=== PATIENT | male | born 1940 | race Caucasian/White ===

== ENCOUNTER 2017-06-16 09:05 | Day surgery (SDC) | payer MEDICARE, BC ==
[2017-06-16] MEDS ORDERED: diphenhydrAMINE HCl 25 MG CAP PO SCH (09:30)
[2017-06-16] MEDS ORDERED: Acetaminophen 500 MG TAB PO SCH (09:30)
[2017-06-16 14:54] VITALS: TEMP 98
[2017-06-16 16:44] VITALS: BP 108/59
== END 2017-06-16 16:43 | disposition home or self-care (01) ==
LOC: ONC/OP 09:05
PROVIDERS: ATTEND Internal Medicine Medical Oncology
PROC: 302 Administration, Circulatory, Transfusion (ICD-10-PCS; principal; 2017-06-16)
DX: D64.9 Anemia, unspecified (principal); D69.6 Thrombocytopenia, unspecified
CPT/HCPCS: 36430; 86850; 86900; 86901; P9016; P9035

== ENCOUNTER 2017-07-17 10:08 | Day surgery (SDC) | payer MEDICARE, BC ==
[2017-07-17] MEDS ORDERED: diphenhydrAMINE 25 MG CAP PO SCH (10:30)
[2017-07-17] MEDS ORDERED: Acetaminophen 500 MG TAB PO SCH (10:30)
[2017-07-17] MEDS ORDERED: Sodium Chloride 0.9% 30 ML ONE (10:44)
[2017-07-17] MEDS ORDERED: Dexamethasone 10 MG, Admixture Fee 1 EACH in Sodium Chloride 0.9% 50 ML IVPB SCH (11:00)
[2017-07-17] MEDS ORDERED: Diphenoxylate HCl/Atropine Tablet PO SCH (11:15)
[2017-07-17] MEDS ORDERED: Loperamide HCl 2 MG CAP PO SCH (11:15)
[2017-07-17 12:08] LABS: ALT (SGPT) 33 U/L (8-55); AST (SGOT) 30 U/L (5-34); Alkaline Phosphatase 164 U/L (40-150); Anion Gap 9 mmol/L (10-20); BUN (Urea Nitrogen) 23 mg/dL (8.4-25.7); Bilirubin, Total 0.7 mg/dL (0.2-1.2); Calc. Creatinine Clearance 0 mL/min (70-130); Calcium 8.9 mg/dL (7.8-10.44); Carbon Dioxide 28 mmol/L (23-31); Chloride 104 mmol/L (98-107); Estimated GFR-MDRD 54; Magnesium 1.8 mg/dL (1.6-2.6); Protein, Total 5.3 g/dL (5.8-8.1)
[2017-07-17 13:42] VITALS: BP 120/60; TEMP 98.2
== END 2017-07-17 14:30 | disposition home or self-care (01) ==
LOC: ONC/OP 10:08
PROVIDERS: ATTEND Internal Medicine Hematology & Oncology
PROC: 30233R1 Transfusion of Nonautologous Platelets into Peripheral Vein, Percutaneous Approach (ICD-10-PCS; principal; 2017-07-17)
DX: D64.9 Anemia, unspecified (principal); D69.6 Thrombocytopenia, unspecified
CPT/HCPCS: 36430; 80053; 83735; 86900; 86901; 96365; 99212; A4216; G0463; J1100; J1642; J7050; P9035

== ENCOUNTER 2017-07-24 09:56 | Day surgery (SDC) | payer MEDICARE, BC ==
[2017-07-24] MEDS ORDERED: Acetaminophen 500 MG TAB PO SCH (10:15)
[2017-07-24] MEDS ORDERED: diphenhydrAMINE 25 MG CAP PO SCH (10:15)
[2017-07-24] MEDS ORDERED: Dexamethasone 10 MG, Admixture Fee 1 EACH in Sodium Chloride 0.9% 50 ML IVPB SCH (10:15)
[2017-07-24] MEDS ORDERED: Sodium Chloride 0.9% 20 ML ONE (10:40)
[2017-07-24 13:11] VITALS: BP 129/62; TEMP 97.8
== END 2017-07-24 13:05 | disposition home or self-care (01) ==
LOC: ONC/OP 09:56
PROVIDERS: ATTEND Internal Medicine
PROC: 30233R1 Transfusion of Nonautologous Platelets into Peripheral Vein, Percutaneous Approach (ICD-10-PCS; principal; 2017-07-24)
DX: D64.9 Anemia, unspecified (principal); D69.6 Thrombocytopenia, unspecified
CPT/HCPCS: 36430; 86900; 86901; 96365; A4216; J1100; J1642; J7050; P9035

== ENCOUNTER 2017-08-05 09:19 | Day surgery (SDC) | payer MEDICARE, BC ==
[2017-08-05] MEDS ORDERED: Acetaminophen 500 MG TAB PO SCH (10:00)
[2017-08-05] MEDS ORDERED: Sodium Chloride 0.9% 20 ML ONE (10:10)
[2017-08-05] MEDS ORDERED: diphenhydrAMINE 25 MG CAP PO SCH (10:15)
[2017-08-05] MEDS ORDERED: Dexamethasone 10 MG/ML VIAL SLOW IVP SCH (10:15)
[2017-08-05 17:40] VITALS: BP 153/71; TEMP 97.4
== END 2017-08-05 17:40 | disposition home or self-care (01) ==
LOC: ONC/OP 09:19
PROVIDERS: ATTEND Nurse Practitioner Acute Care
PROC: 30233N1 Transfusion of Nonautologous Red Blood Cells into Peripheral Vein, Percutaneous Approach (ICD-10-PCS; principal; 2017-08-05)
DX: D64.9 Anemia, unspecified (principal); D69.59 Other secondary thrombocytopenia
CPT/HCPCS: 36430; 86850; 86900; 86901; 90384; 96372; 96374; A4216; J1100; P9016; P9035

== ENCOUNTER 2017-08-13 09:15 | Day surgery (SDC) | payer MEDICARE, BC ==
[2017-08-13] MEDS ORDERED: diphenhydrAMINE 25 MG CAP PO SCH (09:30)
[2017-08-13] MEDS ORDERED: Dexamethasone 4 mg/ml Vial SLOW IVP SCH (09:30)
[2017-08-13] MEDS ORDERED: Acetaminophen 500 MG TAB PO SCH (09:30)
[2017-08-13] MEDS ORDERED: Sodium Chloride 0.9% 30 ML ONE (10:07)
[2017-08-13 19:01] VITALS: BP 160/72; TEMP 97.9
== END 2017-08-13 11:15 | disposition home or self-care (01) ==
LOC: ONC/OP 09:15
PROVIDERS: ATTEND Internal Medicine Hematology & Oncology
PROC: 30233R1 Transfusion of Nonautologous Platelets into Peripheral Vein, Percutaneous Approach (ICD-10-PCS; principal; 2017-08-13)
DX: D64.9 Anemia, unspecified (principal); D69.59 Other secondary thrombocytopenia
CPT/HCPCS: 36430; 86900; 86901; 96374; A4216; J1100; P9035

== ENCOUNTER 2017-08-18 09:27 | Day surgery (SDC) | payer MEDICARE, BC ==
[2017-08-18] MEDS ORDERED: Acetaminophen 500 MG TAB PO SCH (09:45)
[2017-08-18] MEDS ORDERED: Dexamethasone 10 MG/ML VIAL SLOW IVP SCH (09:45)
[2017-08-18] MEDS ORDERED: diphenhydrAMINE 25 MG CAP PO SCH (09:45)
[2017-08-18] MEDS ORDERED: Sterile Water 10 ML VIAL IVP SCH (09:45)
[2017-08-18] MEDS ORDERED: Activase 2 MG VIAL CATH SCH (09:45)
[2017-08-18] MEDS ORDERED: Sodium Chloride 0.9% 20 ML ONE (09:50)
[2017-08-18] MEDS ORDERED: Dexamethasone 4 mg/ml Vial SLOW IVP SCH (11:00)
[2017-08-18 12:09] VITALS: BP 130/63; TEMP 98.1
== END 2017-08-18 12:49 | disposition home or self-care (01) ==
LOC: ONC/OP 09:27
PROVIDERS: ATTEND Internal Medicine Hematology & Oncology
PROC: 30233R1 Transfusion of Nonautologous Platelets into Peripheral Vein, Percutaneous Approach (ICD-10-PCS; principal; 2017-08-18)
DX: D64.9 Anemia, unspecified (principal); D69.6 Thrombocytopenia, unspecified
CPT/HCPCS: 36430; 86900; 86901; 96374; 96375; A4216; J1100; J1642; J2997; P9035

== ENCOUNTER 2017-08-21 09:33 | Day surgery (SDC) | payer MEDICARE, BC ==
[2017-08-21] MEDS ORDERED: Acetaminophen 500 MG TAB PO SCH (10:00)
[2017-08-21] MEDS ORDERED: diphenhydrAMINE 25 MG CAP PO SCH (10:00)
[2017-08-21] MEDS ORDERED: Dexamethasone 4 mg/ml Vial SLOW IVP SCH (10:00)
[2017-08-21] MEDS ORDERED: Sodium Chloride 0.9% 20 ML ONE (13:19)
[2017-08-21 13:30] VITALS: BP 130/66; TEMP 98.2
== END 2017-08-21 16:29 | disposition home or self-care (01) ==
LOC: ONC/OP 09:33
PROVIDERS: ATTEND Internal Medicine Hematology & Oncology
PROC: 30233N1 Transfusion of Nonautologous Red Blood Cells into Peripheral Vein, Percutaneous Approach (ICD-10-PCS; principal; 2017-08-21)
DX: D64.9 Anemia, unspecified (principal); D69.59 Other secondary thrombocytopenia; C92.00 Acute myeloblastic leukemia, not having achieved remission; I10 Essential (primary) hypertension; E78.5 Hyperlipidemia, unspecified; E03.9 Hypothyroidism, unspecified; M19.90 Unspecified osteoarthritis, unspecified site; H40.9 Unspecified glaucoma; K21.9 Gastro-esophageal reflux disease without esophagitis; F41.9 Anxiety disorder, unspecified; F32.9 Major depressive disorder, single episode, unspecified; F42.9 Obsessive-compulsive disorder, unspecified; Z79.2 Long term (current) use of antibiotics; Z79.52 Long term (current) use of systemic steroids; Z79.899 Other long term (current) drug therapy; Z96.651 Presence of right artificial knee joint; Z90.79 Acquired absence of other genital organ(s); Z87.891 Personal history of nicotine dependence; Z85.46 Personal history of malignant neoplasm of prostate
CPT/HCPCS: 36430; 86850; 86900; 86901; 96374; A4216; J1100; P9016

== ENCOUNTER 2017-08-23 11:27 | Inpatient (IN) | payer MEDICARE, BC ==
--- NOTE | 2017-08-23 11:56 | RAD ---
CHEST 1 VIEW PORTABLE: HISTORY: Dyspnea. FINDINGS: Heart size is within normal limits. The lungs show some linear interstitial changes of the nichols sugg esting some subsegmental atelectatic change. No focal infiltrates. IMPRESSION: Linear and interstitial change in the bases suggesting some subsegmental atelectasis. POS: H
[2017-08-23 12:09] LABS: Lactic Acid - Sepsis 1.9 mmol/L (0.5-2.2)
[2017-08-23 12:12] LABS: Hematocrit 29.2 % (42.0-52.0); Red Blood Cell (RBC) Count 3.34 mill/uL (4.70-6.10); White Blood Cell (WBC) Count 0.3 thou/uL (4.8-10.8)
[2017-08-23 12:13] LABS: ALT (SGPT) 15 U/L (8-55); AST (SGOT) 12 U/L (5-34); Alkaline Phosphatase 142 U/L (40-150); Anion Gap 14 mmol/L (10-20); BUN (Urea Nitrogen) 28 mg/dL (8.4-25.7); Bilirubin, Total 1.2 mg/dL (0.2-1.2); Calc. Creatinine Clearance 0 mL/min (70-130); Calcium 9.6 mg/dL (7.8-10.44); Carbon Dioxide 26 mmol/L (23-31); Chloride 96 mmol/L (98-107); Estimated GFR-MDRD 64; Globulin 2.8 g/dL (2.4-3.5); Protein, Total 6.6 g/dL (5.8-8.1)
[2017-08-23] MEDS ORDERED: Ondansetron HCl/PF 4 MG/2 ML Vial ONE (12:28)
[2017-08-23] MEDS ORDERED: Acetaminophen 500 MG TAB ONE (13:27)
[2017-08-23] MEDS ORDERED: Iopamidol 370 76% 100 ML VIAL ONE (13:38)
[2017-08-23 14:21] LABS: Bilirubin Negative (Negative); Blood, Urine Moderate (Negative); Glucose, Urine (Dipstick) Negative (Negative); Ketone, Urine Negative (Negative); Nitrite Negative (Negative); Protein, Urine (Dipstick) Trace mg/dL (Neg-Trace); Urobilinogen 0.2 mg/dL (0.2-1.0)
[2017-08-23 14:25] LABS: Bacteria/HPF None Seen HPF (None Seen); Hyaline Casts/LPF 0-3 HYALINE CAST LPF (0-3 Hyaline); Squamous Epithelial None Seen HPF (0-3); WBC/HPF 0-3 HPF (0-3)
[2017-08-23] MEDS ORDERED: Cefepime 2 GM/10 ML SYR ONE (15:12)
[2017-08-23] MEDS ORDERED: Vancomycin HCl 1.25 GM in Sodium Chloride 0.9% 250 ML 250 ML IVPB SCH (15:30)
--- NOTE | 2017-08-23 15:36 | CT ---
CTA THORAX WITH CONTRAST: 08/23/17 (Computed Tomographic Angiography, chest(noncoronary) with contrast material, and image postprocessin g) (PE protocol) HISTORY: 76-year-old male with cough for two weeks, generalized weakness, nausea, and dyspnea. TECHNIQUE: IV injection of iodinated contrast: 100 mL Isovue 370 Scan acquisition timing attempted to coincide with iodinated contrast bolus reaching maximal density in pulmonary arteries. 3D MIP reconstructions. FINDINGS: There is an aberrant right subclavian artery passing between the esophagus and the upper thoracic spi ne. No thoracic aortic aneurysm or dissection. A layer of numerous tiny calcified gallstones within t he dependent portion of the gallbladder lumen. No signs of acute cholecystitis. Bilateral breast tiss ue. No evidence of pulmonary thromboembolism. Moderate sized air space densities in the left lower lo be, and to a lesser degree in the right lower lobe. Small patchy air space densities at the posterior anterolateral aspect of right middle lobe and posterior segment of right upper lobe. No cardiomegaly , pleural effusion, or pneumothorax. Left sided PICC traversing the left subclavian vein with distal tip at superior vena cava. Several mildly enlarged mediastinal lymph nodes, slightly larger than on p revious CT of 03/02/10. The previously demonstrated bilateral axillary lymphadenopathy has either reso lved or significantly improved since then. IMPRESSION: 1. Evidence for multifocal bilateral pneumonia, worst in the left lower lobe. 2. No evidence of pulmonary thromboembolism. 3. Aberrant right subclavian artery. 4. Cholelithiasis. 5. Gynecomastia. kate[] POS: DARWIN
[2017-08-23] MEDS ORDERED: hydrALAZINE 20 MG/ML VIAL SLOW IVP PRN (15:44)
[2017-08-23] MEDS ORDERED: Artificial Tears 18 DROP/0.9 ML EA EYE PRN (15:44)
[2017-08-23] MEDS ORDERED: Loratadine 10 MG TAB PO PRN (15:44)
[2017-08-23] MEDS ORDERED: Eucerin (Mineral Oil/Petrolatum,White) 30 gm Jar TOP PRN (15:44)
[2017-08-23] MEDS ORDERED: Chloraseptic Spray 180 ml Bottle PO PRN (15:44)
[2017-08-23] MEDS ORDERED: HYDROcodone/Acetaminophen 5/325 mg Tablet PO PRN (15:44)
[2017-08-23] MEDS ORDERED: Diabetic Tussin 200 MG/10 ML UDCUP PO PRN (15:44)
[2017-08-23] MEDS ORDERED: Senokot 8.6 MG TAB PO PRN (15:44)
[2017-08-23] MEDS ORDERED: Ondansetron HCl/PF 4 MG/2 ML Vial IVP PRN (15:44)
[2017-08-23] MEDS ORDERED: Loperamide HCl 2 MG CAP PO PRN (15:44)
[2017-08-23] MEDS ORDERED: Sodium Chloride 0.65% Nasal 44 ML BOT EA NARE PRN (15:44)
[2017-08-23] MEDS ORDERED: Ondansetron ODT 4 MG TAB PO PRN (15:44)
[2017-08-23] MEDS ORDERED: Milk Of Magnesia 30 ML UDCUP PO PRN (15:44)
[2017-08-23] MEDS ORDERED: Multivit, Adult Inj 10 ML VIAL IV SCH (15:45)
[2017-08-23] MEDS ORDERED: ALPRAZolam 0.5 MG TAB PO PRN (15:46)
[2017-08-23] MEDS ORDERED: Multivitamins, Adult 10 ML in Sodium Chloride 0.9% 500 ML IV SCH ×2 (16:15)
--- NOTE | 2017-08-23 16:17 | HP ---
PRIMARY CARE PHYSICIAN: Dat Naqvi M.D. PRIMARY SEMICONDUCTOR PACKAGES SEALER: Farhad Castillo M.D. REASON FOR ADMISSION: Neutropenic fever, sepsis, and severe thrombocytopenia. HISTORY OF PRESENT ILLNESS: A 76-year-old male who has long history of CLL. 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 Patient is following Dr. Castillo as well as MD Anton. Patient is on cytarabine subcu f or 10 days and oral chemotherapy for 28 days. Patient is not able to tell me exact name of oral chem otherapy medication. For last couple of weeks, he was on chemotherapy and patient was also having dr briceno cough, postnasal drip and generalized weakness. Patient saw Dr. Castillo on and patient wa s given prescription for steroid pack. Patient started taking steroid pack yesterday and after that he was not feeling good. He was feeling generalized weakness, nausea, poor appetite, and he was feel ing shortness of breath. He denies any nausea, vomiting, diarrhea, chest pain, hemoptysis or any spu porsha. He denies any abdominal pain. He denies any UTI symptoms. He denies any kind of bleeding from any site. He denies any headache. Patient's family member reports that when they saw Dr. Castillo, at that time, his platelet count was 25,000 and today in the emergency room his platelet count is 8,000. Initially, chest x-ray was negat rocael for any acute process, but when they did CT angiography, patient was found with multifocal pneumo vernon. The patient has received enough IV fluid and his blood pressure is stabilized. He is tachycard ic. He is well mentating in the emergency room. When I saw, at that time, his blood pressure improv ed to 114/70 and his pulse is 110. He is able to provide history and his is present at bedside. REVIEW OF SYSTEMS: The following complete review of systems was negative, unless otherwise mentioned in the HPI or below: Constitutional: Weight loss or gain, ability to conduct usual activities. Skin: Rash, itching. Eyes: Double vision, pain. ENT/Mouth: Nose bleeding, neck stiffness, pain, tenderness. Cardiovascular: Palpitations, dyspnea on exertion, orthopnea. Respiratory: Shortness of breath, wheezing, cough, hemoptysis, fever or night sweats. Gastrointestinal: Poor appetite, abdominal pain, heartburn, nausea, vomiting, constipation, or diarr hea. Genitourinary: Urgency, frequency, dysuria, nocturia. Musculoskeletal: Pain, swelling. Neurologic/Psychiatric: Anxiety, depression. Allergy/Immunologic: Skin rash, bleeding tendency. Please see my HPI for pertinent positive and negative. All other review of systems reviewed and nega tive except as mentioned in the HPI. ALLERGIES: No known drug allergies. CURRENT HOME MEDICATIONS: Abilify 1 mg p.o. daily, Tylenol #3 one tablet q.6 hourly p.r.n., Lipitor 20 mg p.o. at bedtime, ciclopirox topical application twice daily, Deplin 15 mg daily, fluvoxamine 10 0 mg p.o. daily, hydrochlorothiazide 12.5 mg p.o. daily, hyoscyamine 0.125 mg as needed, Synthroid 88 mcg p.o. daily, loperamide as needed, Lumigan ophthalmic drop at bedtime, pilocarpine 1% ophthalmic drop twice daily, potassium chloride 20 mEq p.o. daily, Prilosec 20 mg p.o. daily, promethazine 12.5 mg q.8 hourly p.r.n., valacyclovir 500 mg p.o. daily, and Xanax as needed basis. PAST MEDICAL HISTORY: History of CLL then converted to myelodysplastic syndrome and then converted i nto acute myeloid leukemia on chemotherapy, history of prostate cancer, hypertension, dyslipidemia, h ypothyroidism, osteoarthritis, glaucoma, and gastroesophageal reflux disease. PAST PSYCHIATRIC HISTORY: Anxiety, depression, and obsessive compulsive disorder. PAST SURGICAL HISTORY: Right total knee replacement and prostatectomy. SOCIAL HISTORY: Patient lives at home with the family. No history of smoking, alcohol or other illi cit drug abuse at this point, but he smoked in his life and he quit smoking more than 10 years ago. FAMILY HISTORY: No strong family history of premature coronary artery disease, stroke or cancer. EMERGENCY ROOM COURSE: The patient has received 3 liters of IV fluid, vancomycin, cefepime, Tylenol 1 g, Zofran 8 mg. PHYSICAL EXAMINATION: VITAL SIGNS: On arrival, blood pressure 132/73, lowest blood pressure is 105/43, pulse 128, respirat ory rate 23, temperature 99.8, T-maximum 102.1, saturation 91% on room air, weight 74.8 kilograms. GENERAL: Patient is currently alert, awake, no obvious acute distress. HEAD: Normocephalic, atraumatic. EYES: Pupils round, reactive to light. Extraocular muscles intact. ENT: Oropharynx within normal limits. Moist mucous membranes. No oral lesions. No pharyngeal eryt eleuterio. No petechiae. NECK: Supple. No meningeal signs of irritation, no JVD, no thyromegaly, no carotid bruits. LUNGS: Unable to elicit any rhonchi or wheeze. No rales. Air entry normal. CARDIAC: S1 and S2 regular, tachycardia, no murmur, no gallop, no rub. ABDOMEN: Soft, bowel sounds present. No peritoneal signs, no guarding, no rigidity, no rebound, no suprapubic tenderness. BACK: Examination unremarkable. No CVA tenderness. EXTREMITIES: Upper extremity passive movements of all joints are normal. The patient has PICC line in place in the left upper extremity. Lower extremity trace edema noted. Good peripheral pulsation. SKIN: The patient does have some petechiae noted on the chest wall. Otherwise, no rash, no bruits, no purpura. HEMATOLOGICAL SYSTEM: No lymphadenopathy. PSYCHIATRIC: Normal affect. NEUROLOGIC: The patient is alert and oriented x3. Cranial nerves II-XII intact. Motor 5/5 in all f our limbs. Sensation bilaterally symmetrical. Plantar bilateral flexor. PSYCHIATRIC: Normal affect. IMAGING AND LABORATORY DATA: 1. EKG based on my review, sinus tachycardia, incomplete right bundle branch block pattern, nonspeci fic ST-T changes. 2. Chest x-ray based on my review, no acute cardiopulmonary process, subsegmental atelectasis noted. 3. CT angio negative for pulmonary embolism, but it is showing multifocal infiltration. 4. CBC: WBC 0.3, hemoglobin 10.2, and platelets 8. 5. BMP: Sodium 132, potassium 3.7, chloride 96, carbon dioxide 26, anion gap 14, BUN 28, creatinine 1.11, glucose 126, calcium 9.6. Lactic acid 1.9. 6. LFT: AST 12, ALT 15, alkaline phosphatase 142, albumin 3.8. 7. Urinalysis microscopic hematuria. ASSESSMENT AND PLAN/IMPRESSION: 1. Neutropenic fever. Patient has neutropenia with WBC 0.3. He has underlying hematological malign hailey on chemotherapy. Patient also has T-maximum 102, fever with tachycardia. He is meeting sepsis criteria as well. At this point, patient will be admitted on telemetry floor for close monitoring. Patient will be given neutropenic precautions. Patient will be given IV fluid as well as broad spect rum antibiotic therapy. We will closely monitor for any hemodynamic compromise. At this point, florentin ent is stable to go to the telemetry floor. He does not need at this point any IMCU, but we will dec walter as clinical course progress. 2. Sepsis. Patient has sepsis criteria. At this point, source of infection is pneumonia. Patient will be given broad spectrum antibiotic therapy with cefepime, Levaquin, and vancomycin. We will fol low up on culture result. We will also send urine culture. We will check influenza screen. Based o n culture result, we will change antibiotic therapy accordingly. 3. Neutropenia. Patient has AML and he is on chemotherapy. This leukopenia may be combined from se psis as well as chemotherapy. We will monitor CBC daily and we will provide neutropenic precaution. We will consult Hematology as well. In case if further decision, we will defer to Hematology. 4. Severe thrombocytopenia. We will transfuse him one unit of platelets and we will monitor platele t count. At this point, the patient does not have any bleeding from any site and he has no neurologi dominguez problem or any abdominal problems. We will closely monitor. We will provide fall precaution. 5. Multifocal pneumonia. Patient does not have any x-ray findings, but CT finding is consistent wit h multiple infiltrations. The patient is on broad spectrum antibiotic therapy. We will provide oxyg en to keep saturation above 92%. We will provide DuoNeb therapy as needed basis. We will consider M ucinex 600 mg twice daily. We will also check influenza screen and a Streptococcal pneumonia antigen test in urine. We will follow up on culture result. 6. Hypothyroidism. We will continue Synthroid 88 mcg p.o. daily. 7. Dyslipidemia. We will continue Lipitor 20 mg p.o. at bedtime. 8. Anxiety and depression. Once we verify his home medication of Abilify, fluvoxamine, which we samara l continue during this admission. 9. Glaucoma. We will continue Lumigan and pilocarpine ophthalmic drops as per home dosage. 10. Gastroesophageal reflux disease. We will continue Protonix 40 mg p.o. daily. 11. Acute myeloid leukemia, on chemotherapy. We will consult Hematology and will defer treatment pl an to them. 12. Deep venous thrombosis prophylaxis, only sequential compression device boots. No Lovenox becaus e of severe thrombocytopenia. 13. Gastrointestinal prophylaxis, Protonix 40 mg p.o. daily. CODE STATUS: The patient is FULL CODE. Discussed with the patient's and she is surrogate decis ion maker. Disposition and plan based on clinical course. We are expecting patient's stay in the spital more than 2 midnights. Upon stabilization, we will consider transferring to Oncology. Plan o f care extensively discussed with the patient and family member at bedside in the emergency room.
[2017-08-23 19:47] LABS: LegU Control Bar Appear? YES (CONTROL BAR); LegionellaU Control Bkground? CLEAR/WHITE (CLR/WHITE)
[2017-08-23 19:48] LABS: Strp pneuU Control Background? CLEAR/WHITE (CLR/WHITE); Strp pneumo Control Bar Appear YES (CONTROL BAR)
[2017-08-23] MEDS: NS 0.9% w/ 20 MEQ KCL 1,000 ML/1,000 ML BAG IV SCH (20:25)
[2017-08-23] MEDS ORDERED: Atorvastatin Calcium 20 MG TAB PO SCH (21:00)
[2017-08-23] MEDS ORDERED: Cefepime 2 GM in Sodium Chloride 0.9% 100 ML IVPB SCH (21:00)
[2017-08-23] MEDS: Pilocarpine 1% Ophth Drops 15 ML BOT EA EYE SCH (21:23)
[2017-08-23] MEDS: guaiFENesin ER 600 MG TAB PO SCH (21:24)
[2017-08-24] MEDS: NS 0.9% w/ 20 MEQ KCL 1,000 ML/1,000 ML BAG IV SCH ×4 (00:18→19:01)
[2017-08-24] MEDS: Cefepime 2 GM, Syringe 2.5 ML in Sterile Water 10 ML SLOW IVP SCH ×2 (03:05→16:36)
[2017-08-24] MEDS: Vancomycin HCl 750 MG in Sodium Chloride 0.9% 250 ML 250 ML IVPB SCH ×2 (03:07→16:36)
[2017-08-24 05:28] LABS: Hematocrit 20.6 % (42.0-52.0); Mean Platelet Volume 7.8 fL (7.4-10.4); Red Blood Cell (RBC) Count 2.32 mill/uL (4.70-6.10); White Blood Cell (WBC) Count 0.1 thou/uL (4.8-10.8)
[2017-08-24 05:29] LABS: ALT (SGPT) 11 U/L (8-55); AST (SGOT) 10 U/L (5-34); Alkaline Phosphatase 94 U/L (40-150); Anion Gap 9 mmol/L (10-20); BUN (Urea Nitrogen) 23 mg/dL (8.4-25.7); Calc. Creatinine Clearance 86 mL/min (70-130); Calcium 8.4 mg/dL (7.8-10.44); Carbon Dioxide 26 mmol/L (23-31); Chloride 104 mmol/L (98-107); Estimated GFR-MDRD 89; Globulin 2.3 g/dL (2.4-3.5); Protein, Total 5.2 g/dL (5.8-8.1)
[2017-08-24] MEDS ORDERED: Levothyroxine Sodium 88 MCG TAB PO SCH (06:00)
[2017-08-24] MEDS: Pilocarpine 1% Ophth Drops 15 ML BOT EA EYE SCH ×2 (10:30→21:12)
[2017-08-24] MEDS: guaiFENesin ER 600 MG TAB PO SCH ×2 (10:30→21:15)
[2017-08-24] MEDS: Saccharomyces boulardii 250 MG CAP PO SCH (10:31)
--- NOTE | 2017-08-24 10:45 | PDOC.PN ---
- Subjective Encounter Start Date: 08/24/17 Encounter Start Time: 10:44 Subjective: no new complaints - Objective Resuscitation Status: Resuscitation Status FULL:Full Resuscitation MAR Reviewed: Yes Vital Signs & Weight: Vital Signs (12 hours) Temp Pulse Resp BP BP Pulse Ox 08/24/17 08:20 97.9 F 86 18 100/54 L 100 08/24/17 04:00 98.2 F 108 H 18 105/55 L 100 08/24/17 00:00 99.2 F 108 H 20 131/60 100 Weight Weight 182 lb 4.8 oz I&O: 08/23/17 08/24/17 08/25/17 06:59 06:59 06:59 Intake Total 5540 360 Output Total 1145 Balance 4395 360 Result Diagrams: 08/24/17 04:17 08/24/17 04:17 Radiology Reviewed by me: Yes Phys Exam - Physical Examination Constitutional: NAD HEENT: PERRLA, moist MMs temporal wasting Neck: supple Respiratory: clear to auscultation bilateral Cardiovascular: RRR, no significant murmur Gastrointestinal: soft, non-tender Musculoskeletal: no edema Neurological: non-focal, moves all 4 limbs Deviation from normal: pale with bruising Dx/Plan (1) AML (acute myeloblastic leukemia) Code(s): C92.00 - ACUTE MYELOBLASTIC LEUKEMIA, NOT HAVING ACHIEVED REMISSION Status: Acute (2) PNA (pneumonia) Code(s): J18.9 - PNEUMONIA, UNSPECIFIED ORGANISM Status: Acute (3) Anemia Code(s): D64.9 - ANEMIA, UNSPECIFIED Status: Acute (4) Thrombocytopenia Code(s): D69.6 - THROMBOCYTOPENIA, UNSPECIFIED Status: Acute (5) Sepsis Code(s): A41.9 - SEPSIS, UNSPECIFIED ORGANISM Status: Acute - Plan cont current plan of care, continue antibiotics, PT/OT * .
[2017-08-24] MEDS ORDERED: ALPRAZolam 0.5 MG TAB PO PRN (11:06)
[2017-08-24] MEDS ORDERED: Hyoscyamine Sulfate SL 0.125 mg Tablet SL PRN (11:06)
[2017-08-24] MEDS ORDERED: Acetaminophen/Codeine 30-300mg Tablet PO PRN (11:06)
[2017-08-24] MEDS ORDERED: methylPREDNISolone 4 mg Tablet PO SCH (11:15)
--- NOTE | 2017-08-24 12:52 | CON ---
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 He has been started on chemotherapy recently at [facility] with venetoclax and cytosine segun binoside. He has completed cytosine arabinoside and is continuing venetoclax. The patient was admit livier yesterday with extreme weakness and fever. A chest x-ray in the emergency room was essentially n egative. However, CT scan showed multifocal pneumonia. He has been cultured and is currently on van comycin, cefepime, and Levaquin. The patient is feeling better this morning. PHYSICAL EXAMINATION: VITAL SIGNS: Temperature 97.9, pulse 96, respirations 18, blood pressure 100/54. HEENT: Unremarkable. LYMPHATICS: There is no peripheral lymphadenopathy. CHEST: Unremarkable. HEART: Unremarkable. ABDOMEN: Unremarkable. LABORATORY DATA: CBC shows WBC of 100 with hemoglobin of 7 and platelet count of 21,000. He was giv en platelet transfusion yesterday. Chemistry profile shows serum creatinine of 0.84, potassium 3.9, calcium 8.4, and albumin of 2.3. ASSESSMENT AND RECOMMENDATION: The patient will be continued on antibiotics and will receive blood c omponent support with platelets and RBC transfusion.
[2017-08-24 13:12] LABS: IRF 0.067 Ratio (0.163-0.362); Reticulocyte Count 0.1 % (0.5-1.5)
[2017-08-24 13:18] LABS: Hematocrit 20.2 % (42.0-52.0); Mean Platelet Volume 7.4 fL (7.4-10.4); Red Blood Cell (RBC) Count 2.27 mill/uL (4.70-6.10); White Blood Cell (WBC) Count 0.1 thou/uL (4.8-10.8)
[2017-08-24] MEDS ORDERED: LEVOMEFOLATE PO SCH (21:00)
[2017-08-24] MEDS ORDERED: ALGAL OIL PO SCH (21:00)
[2017-08-24] MEDS ORDERED: Pilocarpine 1% Ophth Drops 15 ML BOT EA EYE SCH (21:00)
[2017-08-24] MEDS ORDERED: FLUVOXAMINE MALEATE 100 MG PO SCH (21:00)
[2017-08-24] MEDS ORDERED: Atorvastatin Calcium 20 MG TAB PO SCH (21:00)
[2017-08-24] MEDS: Latanoprost 0.005% Ophth Soln 2.5 ml Bottle EA EYE SCH (21:08)
[2017-08-24] MEDS: Aripiprazole 2 MG TAB PO SCH (21:09)
[2017-08-25 03:31] LABS: Hematocrit 25.9 % (42.0-52.0); Red Blood Cell (RBC) Count 2.89 mill/uL (4.70-6.10); White Blood Cell (WBC) Count 0.1 thou/uL (4.8-10.8)
[2017-08-25 03:41] LABS: Vancomycin, Trough 11.6 ug/mL
[2017-08-25 03:43] LABS: Anion Gap 9 mmol/L (10-20); BUN (Urea Nitrogen) 29 mg/dL (8.4-25.7); Calc. Creatinine Clearance 100 mL/min (70-130); Calcium 7.8 mg/dL (7.8-10.44); Carbon Dioxide 22 mmol/L (23-31); Chloride 110 mmol/L (98-107); Estimated GFR-MDRD Greater than 90
[2017-08-25] MEDS ORDERED: Vancomycin HCl 1 GM in Premix Bag 1 BAG IVPB SCH ×2 (04:15→16:00)
[2017-08-25] MEDS: Cefepime 2 GM, Syringe 2.5 ML in Sterile Water 10 ML SLOW IVP SCH ×2 (04:24→21:29)
[2017-08-25] MEDS: Hydrochlorothiazide 25 MG TAB PO SCH (08:47)
[2017-08-25] MEDS: Pilocarpine 1% Ophth Drops 15 ML BOT EA EYE SCH ×2 (08:47→21:24)
[2017-08-25] MEDS: guaiFENesin ER 600 MG TAB PO SCH ×2 (08:48→21:17)
[2017-08-25] MEDS: Saccharomyces boulardii 250 MG CAP PO SCH (08:48)
[2017-08-25] MEDS: NS 0.9% w/ 20 MEQ KCL 1,000 ML/1,000 ML BAG IV SCH (08:49)
[2017-08-25] MEDS ORDERED: Levothyroxine Sodium 88 MCG TAB PO SCH (09:00)
[2017-08-25] MEDS ORDERED: Potassium Chloride 10 MEQ TAB PO SCH (09:00)
--- NOTE | 2017-08-25 10:05 | PDOC.PN ---
- Subjective Encounter Start Date: 08/25/17 Encounter Start Time: 08:10 -: old records requested/rev pt has cough, Patient seen and examined. No new complaints. No overnight events no chills, no fever - Objective Resuscitation Status: Resuscitation Status FULL:Full Resuscitation MAR Reviewed: Yes Vital Signs & Weight: Vital Signs (12 hours) Temp Pulse Resp BP BP Pulse Ox 08/25/17 07:58 96.3 F L 70 18 110/57 L 97 08/25/17 04:00 98.7 F 69 20 109/59 L 100 08/25/17 01:10 100 08/25/17 00:00 98.0 F 74 18 108/54 L 98 Weight Weight 184 lb 4.8 oz I&O: 08/24/17 08/25/17 08/26/17 06:59 06:59 06:59 Intake Total 5540 3060 Output Total 1145 1170 Balance 4395 1890 Result Diagrams: 08/25/17 03:05 08/25/17 03:05 EKG Reviewed by me: Yes (NSR) Phys Exam - Physical Examination Constitutional: NAD HEENT: PERRLA, moist MMs, sclera anicteric Neck: no JVD, supple Respiratory: no wheezing, no rales, no rhonchi Cardiovascular: RRR, no significant murmur, no rub Gastrointestinal: soft, non-tender, no distention, positive bowel sounds Musculoskeletal: no edema, pulses present Neurological: non-focal, normal sensation, moves all 4 limbs Lymphatic: no nodes Psychiatric: normal affect, A&O x 3 Skin: no rash, normal turgor Dx/Plan (1) Bacteremia due to Enterococcus Code(s): R78.81 - BACTEREMIA; B95.2 - ENTEROCOCCUS THE CAUSE OF DISEASES CLASSIFIED ELSEWHERE Status: Acute (2) Hyperkalemia Code(s): E87.5 - HYPERKALEMIA Status: Acute (3) Multifocal pneumonia Code(s): J18.9 - PNEUMONIA, UNSPECIFIED ORGANISM Status: Acute (4) Neutropenic fever Code(s): D70.9 - NEUTROPENIA, UNSPECIFIED; R50.81 - FEVER PRESENTING WITH CONDITIONS CLASSIFIED ELSEWHERE Status: Acute (5) Sepsis with acute organ dysfunction Code(s): A41.9 - SEPSIS, UNSPECIFIED ORGANISM; R65.20 - SEVERE SEPSIS WITHOUT SEPTIC SHOCK Status: Acute (6) Thrombocytopenia Code(s): D69.6 - THROMBOCYTOPENIA, UNSPECIFIED Status: Acute (7) AML (acute myeloblastic leukemia) Code(s): C92.00 - ACUTE MYELOBLASTIC LEUKEMIA, NOT HAVING ACHIEVED REMISSION Status: Chronic (8) Cholelithiases Code(s): K80.20 - CALCULUS OF GALLBLADDER W/O CHOLECYSTITIS W/O OBSTRUCTION Status: Chronic (9) Dyslipidemia Code(s): E78.5 - HYPERLIPIDEMIA, UNSPECIFIED Status: Chronic (10) Hypothyroidism Code(s): E03.9 - HYPOTHYROIDISM, UNSPECIFIED Status: Chronic - Plan cont current plan of care, continue antibiotics * today high K is related with IVF with potassium and oral potassium , so will DC both today * will repeat labs tomorrow * DC tele * transfer to oncology * oncology following * will consult ID for bacteremia and PICC line * medication reviewed as below * symptomatic treatment * continue current empiric antibiotics * transfusional support will defer to oncology * will repeat blood culture tomorrow. Review of Systems - Review of Systems Constitutional: Weakness. negative: Fever, Chills, Sweats, Malaise, Other Respiratory: Cough. negative: Dry, Shortness of Breath, Hemoptysis, SOB with Excertion, Pleuritic Pain, Sputum, Wheezing Cardiovascular: negative: Chest Pain, Palpitations, Orthopnea, Paroxysmal Noc. Dyspnea, Edema, Light Headedness, Other Gastrointestinal: negative: Nausea, Vomiting, Abdominal Pain, Diarrhea, Constipation, Melena, Hematochezia, Other Genitourinary: negative: Dysuria, Frequency, Incontinence, Hematuria, Retention , Other Musculoskeletal: negative: Neck Pain, Shoulder Pain, Arm Pain, Back Pain, Hand Pain, Leg Pain, Foot Pain, Other Skin: negative: Rash, Lesions, Mason, Bruising, Other - Medications/Allergies Allergies/Adverse Reactions: Allergies Allergy/AdvReac Type Severity Reaction Status Date / Time No Known Allergies Allergy Unverified 12/27/16 11:21 Medications: Current Medications Acetaminophen (Tylenol) 650 mg PO Q4H PRN PRN Reason: Headache/Fever or Pain Acetaminophen/Codeine Phosphate (Tylenol #3) 1 tab PO Q6H PRN PRN Reason: Pain Hydrocodone Bitart/Acetaminophen ([place] 5/325) 1 tab PO Q4H PRN PRN Reason: Moderate Pain (4-6) Al Hydroxide/Mg Hydroxide (Maalox) 30 ml PO Q6H PRN PRN Reason: Heartburn or Indigestion Albuterol/Ipratropium (Duoneb) 3 ml NEB Z9CA-CV PRN PRN Reason: SOB &/or Wheezing Alprazolam (Xanax) 0.5 mg PO HS PRN PRN Reason: Anxiety Aripiprazole (Abilify) 1 mg PO QPM [facility] Last Admin: 08/24/17 21:09 Dose: 1 mg Artificial Tears (Tears Naturale) 0 drop EA EYE PRN PRN PRN Reason: Dry Eyes Atorvastatin Calcium (Lipitor) 20 mg PO HS [facility] Last Admin: 08/24/17 21:09 Dose: 20 mg Fluvoxamine Maleate (Luvox) 100 mg PO HS [facility] Last Admin: 08/24/17 21:12 Dose: 100 mg Guaifenesin (Robitussin Sf) 200 mg PO Q4H PRN PRN Reason: Cough Guaifenesin (Mucinex) 600 mg PO Q12HR [facility] Last Admin: 08/25/17 08:48 Dose: 600 mg Hydralazine HCl (Apresoline) 10 mg SLOW IVP Q4H PRN PRN Reason: Systolic BP > 180 Hydrochlorothiazide (Hydrochlorothiazide) 12.5 mg PO DAILY [facility] Last Admin: 08/25/17 08:47 Dose: 12.5 mg Hyoscyamine Sulfate (Levsin) 0.125 mg PO Q4H PRN PRN Reason: GI Cramping Levofloxacin 500 mg/ Device 100 mls @ 100 mls/hr IVPB Q24HR [facility] Last Admin: 08/24/17 18:15 Dose: 100 mls Cefepime HCl 2 gm/ Syringe 2.5 (ml/ Sterile Water) 12.5 mls @ 150 mls/hr SLOW IVP 0300,1500 [facility] Last Admin: 08/25/17 04:24 Dose: 12.5 mls Vancomycin HCl 1 gm/ Device 200 mls @ 200 mls/hr IVPB 0400,1600 [facility] Latanoprost (Xalatan 0.005% Ophth Soln) 1 drop EA EYE [facility] Last Admin: 08/24/17 21:08 Dose: 1 drp Levothyroxine Sodium (Synthroid) 88 mcg PO DAILY [facility] Last Admin: 08/25/17 08:47 Dose: 88 mcg Loperamide HCl (Imodium) 2 mg PO ASDIR PRN PRN Reason: Diarrhea/Loose Stools Loratadine (Claritin) 10 mg PO DAILYPRN PRN PRN Reason: Sinus Symptoms Magnesium Hydroxide (Milk Of Magnesium) 30 ml PO DAILYPRN PRN PRN Reason: Constipation Mineral Oil/White Petrolatum (Eucerin Cream) 0 gm TOP BIDPRN PRN PRN Reason: Dry Skin Miscellaneous Medication (Pharmacy To Dose) 1 each IVPB PRN PRN PRN Reason: Pharmacy to dose (Venetoclax [ (Venclexta] 2 Tab)) 2 tab PO DAILY [facility] Ondansetron HCl (Zofran Odt) 4 mg PO Q6H PRN PRN Reason: Nausea/Vomiting Ondansetron HCl (Zofran) 4 mg IVP Q6H PRN PRN Reason: Nausea/Vomiting Pantoprazole Sodium (Protonix) 40 mg PO DAILY [facility] Last Admin: 08/25/17 08:48 Dose: 40 mg Phenol (Chloraseptic [place] 180 Ml Bot) 0 ml PO PRN PRN PRN Reason: Sore Throat Pilocarpine HCl (Isopto Carpine 1% Ophth Soln) 1 drop EA EYE BID [facility] Last Admin: 08/25/17 08:47 Dose: 1 drp Promethazine HCl (Phenergan) 25 mg PO Q8H PRN PRN Reason: Nausea Saccharomyces Boulardii (Florastor) 250 mg PO DAILY [facility] Last Admin: 08/25/17 08:48 Dose: 250 mg Senna (Senokot) 2 tab PO HSPRN PRN PRN Reason: Constipation Sodium Chloride ([place] Nasal [place] 0.65%) 0 ml EA NARE QIDPRN PRN PRN Reason: Nasal Congestion Sodium Chloride (Flush - Normal Saline) 10 ml IVF PRN PRN PRN Reason: Saline Flush Sodium Chloride (Flush - Normal Saline) 10 ml IV DAILY [facility] Last Admin: 08/25/17 08:49 Dose: Not Given Valacyclovir HCl (Valtrex) 500 mg PO DAILY [facility] Last Admin: 08/25/17 09:01 Dose: 500 mg
--- NOTE | 2017-08-25 10:46 | PQF ---
DATE: 08-25-17 ATTN: DR. MYA HARRIS Please exercise your independent, professional judgment in responding to the clarification form. Clinical indicators are provided on the bottom of this form for your review Please check appropriate box(s): [ ] Empirically treating Gram Negative Pneumonia [ x ] Pneumonia secondary to (specify organism / underlying disease) __ enteroccocus__ [ ] Other diagnosis [ ] Unable to determine In addition, please specify: Present on Admission (POA): [ x] Yes [ ] No [ ] Unable to determine For continuity of documentation, please document condition throughout progress notes and discharge summary. Thank You. CLINICAL INDICATORS - SIGNS / SYMPTOMS / LABS ER DIAGNOSIS: PNEUMONIA, FEVER, NEUTROPENIA, TACHYCARDIA, THROMBOCYTOPENIA ER DOCUMENTATION: REPORTS COUGH X 2 WEEKS, NAUSEA, DIFFICULTY WALKING, LOSS OF APPETITE AND SOB. H&P DR. HARRIS: PNEUMONIA PN DR. CHOUDHARY 08-24-17: ACUTE PNEUMONIA (08-24-17) MAXIPIME, (08-25-17) VANCOMYCIN, (08-23-17) LEVAQUIN RISK FACTORS: H&P: HX OF CLL, MYELOPLASTIC SYNDROME, ACUTE MYELOID LEUKEMIA ON CHEMO TREATMENTS: (08-24-17) MAXIPIME, (08-25-17) VANCOMYCIN, (08-23-17 ) LEVAQUIN (08-24-17) IVF (This form is maintained as a part of the permanent medical record) 2014 [employer] All Rights Reserved [email or web address] Office: [phone] [email or web address]
[2017-08-25 13:20] VITALS: BMI 28.8
--- NOTE | 2017-08-25 16:05 | CON ---
DATE OF CONSULTATION: 08/25/2017 REASON FOR CONSULTATION: Bacteremia with pneumonia. 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 The patient had received his first course of subcutaneo us cytarabine for 10 days plus oral chemotherapy. Patient had a PICC line inserted here in the [facility] and this is mostly for administration of transfusions and blood draws because of his MDS. He saw Dr. Castillo and complained of some respiratory symptoms. He continued to feel unwell with generaliz ed weakness and some dyspnea. He was then referred to the emergency room where he was found to be pa ncytopenic with agranulocytosis. A CT of the chest showed some multifocal areas of pneumonitis in th e lower lobes and he is admitted for treatment. REVIEW OF SYSTEMS: Currently, the patient is awake. He appears in no distress, no headaches, visual symptoms, sore throat, odynophagia, dysphagia. He has 1 tooth that is bothering him in the lower ma ndible, left side, and is scheduled for removal next week. Having some cough and mild dyspnea. No c hest pain. No abdominal pain or diarrhea. No genitourinary symptoms. No joint symptoms. No neurol ogical symptoms. PAST MEDICAL HISTORY: Prostate cancer, in remission; CLL with MDS and then acute myelogenous leukemi a, currently on treatment with cytarabine and another oral agent; hypertension; hyperlipidemia; osteo arthritis; GERD. PAST SURGICAL HISTORY: Right knee replacement and prostatectomy. SOCIAL HISTORY: Lives in the area. History of smoking. 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 FAMILY HISTORY: Noncontributory. ALLERGY HISTORY: No known drug allergies. CURRENT MEDICATIONS: Tylenol, [place], Maalox, DuoNeb, Xanax, Abilify, Lipitor, cefepime, Robitussin, levofloxacin, vancomycin, valacyclovir. PHYSICAL EXAMINATION: VITAL SIGNS: T-max 99.3, blood pressure 112/65, pulse 76, respirations 16-18, O2 sat 97%. GENERAL: Appears in no distress, awake, alert, chronically ill-appearing. PICC line in left upper extremity. HEENT: Ocular movements are conjugate. Sclerae are white. Pupils are equal. Oral cavity with only a few remaining teeth with marked decay. NECK: Supple, no jugular venous distention. LUNGS: With quite prominent inspiratory crackles at the bases, right and left side. HEART: S1, S2, regular rate. No obvious murmurs. No S3 or S4. ABDOMEN: Soft, not distended or tender. No ascites. No bladder distention. EXTREMITIES: No joint inflammatory activity. No edema. Pulses are 1+ in dorsalis pedis. Moves all extremities equally. NEUROLOGIC: Cognitive function appears to be intact. LABORATORY DATA: White cell count 0.1, hemoglobin 9, MCV 89, platelets 16,000. His creatinine 0.72. Sodium 135, potassium 5.7, albumin 2.9. Liver profile normal. Urinalysis with 0-3 wbcs, 7-10 rbcs , Legionella pneumophila and Streptococcus pneumoniae antigen negative. Blood culture is vancomycin- resistant E. faecium, retrieved from 1/2 sets of blood cultures. Full susceptibility test is still p ending. ASSESSMENT: Acute myeloid leukemia, following diagnosis of myelodysplastic syndrome associated with chronic lymphocytic leukemia treatment, now undergoing cytarabine chemotherapy with severe neutropeni a/pancytopenia with PICC line colonization by Enterococcus faecium as the most likely scenario. Luis ve the PICC line and start daptomycin. We will avoid Zyvox, because of the bone marrow side effects of linezolid. Wait on the final susceptibility results and then change to beta-lactam and gentamicin combination or continue daptomycin depending on results.
[2017-08-25] MEDS ORDERED: DAPTOmycin 500 MG VIAL SLOW IVP SCH (17:00)
[2017-08-25] MEDS ORDERED: DAPTOMYCIN SLOW IVP SCH (18:00)
[2017-08-25] MEDS ORDERED: ADMIXTURE FEE CHEMO SLOW IVP SCH (18:00)
[2017-08-25] MEDS ORDERED: Linezolid 600 MG TAB PO SCH ×2 (21:00)
[2017-08-25] MEDS: Latanoprost 0.005% Ophth Soln 2.5 ml Bottle EA EYE SCH (21:24)
[2017-08-25] MEDS: Aripiprazole 2 MG TAB PO SCH (22:05)
[2017-08-26] MEDS: Cefepime 2 GM, Syringe 2.5 ML in Sterile Water 10 ML SLOW IVP SCH ×3 (04:23→15:05)
[2017-08-26] MEDS: Levothyroxine Sodium 88 MCG TAB PO SCH (05:54)
[2017-08-26] MEDS ORDERED: DAPTOMYCIN SLOW IVP SCH (08:00)
[2017-08-26] MEDS ORDERED: ADMIXTURE FEE CHEMO SLOW IVP SCH (08:00)
[2017-08-26] MEDS: guaiFENesin ER 600 MG TAB PO SCH ×2 (08:35→20:52)
[2017-08-26] MEDS: Hydrochlorothiazide 25 MG TAB PO SCH (08:35)
[2017-08-26] MEDS: Saccharomyces boulardii 250 MG CAP PO SCH (08:35)
[2017-08-26] MEDS: Pilocarpine 1% Ophth Drops 15 ML BOT EA EYE SCH ×2 (08:56→20:53)
--- NOTE | 2017-08-26 11:54 | PDOC.PN ---
- Subjective Encounter Start Date: 08/26/17 Encounter Start Time: 07:00 pt is bothered by cough, no fever, now has peripheral access - Objective Resuscitation Status: Resuscitation Status FULL:Full Resuscitation MAR Reviewed: Yes Vital Signs & Weight: Vital Signs (12 hours) Temp Pulse Resp BP BP Pulse Ox 08/26/17 08:00 98.5 F 105 H 18 08/26/17 07:55 98.5 F 105 H 18 159/75 H 99 08/26/17 04:00 98.1 F 101 H 16 158/74 H 96 08/26/17 00:00 97.8 F 95 16 158/79 H 97 Weight Admit Weight 171 lb 4.8 oz Weight 184 lb 4.8 oz I&O: 08/25/17 08/26/17 08/27/17 06:59 06:59 06:59 Intake Total 3060 940 250 Output Total 1170 750 Balance 1890 190 250 Result Diagrams: 08/25/17 03:05 08/25/17 03:05 Phys Exam - Physical Examination Constitutional: NAD HEENT: PERRLA, moist MMs, sclera anicteric Neck: no JVD, supple Respiratory: no wheezing, no rales, no rhonchi Cardiovascular: RRR, no significant murmur, no rub Gastrointestinal: soft, non-tender, no distention, positive bowel sounds Musculoskeletal: no edema, pulses present Neurological: non-focal, normal sensation Lymphatic: no nodes Psychiatric: normal affect, A&O x 3 Skin: no rash, normal turgor Dx/Plan (1) Bacteremia due to Enterococcus Code(s): R78.81 - BACTEREMIA; B95.2 - ENTEROCOCCUS THE CAUSE OF DISEASES CLASSIFIED ELSEWHERE Status: Acute (2) Hyperkalemia Code(s): E87.5 - HYPERKALEMIA Status: Acute (3) Multifocal pneumonia Code(s): J18.9 - PNEUMONIA, UNSPECIFIED ORGANISM Status: Acute (4) Neutropenic fever Code(s): D70.9 - NEUTROPENIA, UNSPECIFIED; R50.81 - FEVER PRESENTING WITH CONDITIONS CLASSIFIED ELSEWHERE Status: Acute (5) Sepsis with acute organ dysfunction Code(s): A41.9 - SEPSIS, UNSPECIFIED ORGANISM; R65.20 - SEVERE SEPSIS WITHOUT SEPTIC SHOCK Status: Acute (6) Thrombocytopenia Code(s): D69.6 - THROMBOCYTOPENIA, UNSPECIFIED Status: Acute (7) AML (acute myeloblastic leukemia) Code(s): C92.00 - ACUTE MYELOBLASTIC LEUKEMIA, NOT HAVING ACHIEVED REMISSION Status: Chronic (8) Cholelithiases Code(s): K80.20 - CALCULUS OF GALLBLADDER W/O CHOLECYSTITIS W/O OBSTRUCTION Status: Chronic (9) Dyslipidemia Code(s): E78.5 - HYPERLIPIDEMIA, UNSPECIFIED Status: Chronic (10) Hypothyroidism Code(s): E03.9 - HYPOTHYROIDISM, UNSPECIFIED Status: Chronic (11) Sepsis associated with vascular access catheter Code(s): T82.7XXA - INFECT/INFLM REACT D/T OTH CARDI/VASC DEV/IMPLNT/GRFT, INIT ; A41.9 - SEPSIS, UNSPECIFIED ORGANISM Status: Acute - Plan cont current plan of care, continue antibiotics * continue IV daptomycin, IV cefepime * await C & S result * will ask ID to determine duration of therapy * if needs longer then will need PICC line and in that case before procedure he may need platelets * medication reviewed as below * symptomatic treatment * will add phenergan with codein cough syrup * will repeat labs * oncology and ID following. * old PICC line removed Review of Systems - Review of Systems Constitutional: negative: Fever, Chills, Sweats, Weakness, Malaise, Other Eyes: negative: Pain, Vision Change, Conjunctivae Inflammation, Eyelid Inflammation, Redness, Other ENT: negative: Ear Pain, Ear Discharge, Nose Pain, Nose Discharge, Nose Congestion, Mouth Pain, Mouth Swelling, Throat Pain, Throat Swelling, Other Respiratory: Cough. negative: Dry, Shortness of Breath, Hemoptysis, SOB with Excertion, Pleuritic Pain, Sputum, Wheezing Cardiovascular: negative: Chest Pain, Palpitations, Orthopnea, Paroxysmal Noc. Dyspnea, Edema, Light Headedness, Other Gastrointestinal: negative: Nausea, Vomiting, Abdominal Pain, Diarrhea, Constipation, Melena, Hematochezia, Other Genitourinary: negative: Dysuria, Frequency, Incontinence, Hematuria, Retention , Other Musculoskeletal: negative: Neck Pain, Shoulder Pain, Arm Pain, Back Pain, Hand Pain, Leg Pain, Foot Pain, Other Skin: negative: Rash, Lesions, Mason, Bruising, Other - Medications/Allergies Allergies/Adverse Reactions: Allergies Allergy/AdvReac Type Severity Reaction Status Date / Time No Known Allergies Allergy Unverified 12/27/16 11:21 Medications: Current Medications Acetaminophen (Tylenol) 650 mg PO Q4H PRN PRN Reason: Headache/Fever or Pain Acetaminophen/Codeine Phosphate (Tylenol #3) 1 tab PO Q6H PRN PRN Reason: Pain Hydrocodone Bitart/Acetaminophen ([place] 5/325) 1 tab PO Q4H PRN PRN Reason: Moderate Pain (4-6) Al Hydroxide/Mg Hydroxide (Maalox) 30 ml PO Q6H PRN PRN Reason: Heartburn or Indigestion Albuterol/Ipratropium (Duoneb) 3 ml NEB A3CS-VS PRN PRN Reason: SOB &/or Wheezing Alprazolam (Xanax) 0.5 mg PO HS PRN PRN Reason: Anxiety Aripiprazole (Abilify) 1 mg PO QPM [facility] Last Admin: 08/25/17 22:05 Dose: 1 mg Artificial Tears (Tears Naturale) 0 drop EA EYE PRN PRN PRN Reason: Dry Eyes Fluvoxamine Maleate (Luvox) 100 mg PO HS [facility] Last Admin: 08/25/17 21:28 Dose: 100 mg Guaifenesin (Robitussin Sf) 200 mg PO Q4H PRN PRN Reason: Cough Guaifenesin (Mucinex) 600 mg PO Q12HR [facility] Last Admin: 08/26/17 08:35 Dose: 600 mg Hydralazine HCl (Apresoline) 10 mg SLOW IVP Q4H PRN PRN Reason: Systolic BP > 180 Hydrochlorothiazide (Hydrochlorothiazide) 12.5 mg PO DAILY [facility] Last Admin: 08/26/17 08:35 Dose: 12.5 mg Hyoscyamine Sulfate (Levsin) 0.125 mg PO Q4H PRN PRN Reason: GI Cramping Cefepime HCl 2 gm/ Syringe 2.5 (ml/ Sterile Water) 12.5 mls @ 150 mls/hr SLOW IVP 0300,1500 [facility] Last Admin: 08/26/17 05:26 Dose: 12.5 mls Levofloxacin 500 mg/ Device 100 mls @ 100 mls/hr IVPB Q24HR [facility] Last Admin: 08/26/17 05:34 Dose: 100 mls Daptomycin 440 mg/ (Miscellaneous Medication) mls @ 0 mls/hr SLOW IVP 0800 [facility] PRN Reason: As Directed Last Admin: 08/26/17 08:36 Dose: 10 mls Latanoprost (Xalatan 0.005% Ophth Soln) 1 drop EA EYE HS [facility] Last Admin: 08/25/17 21:24 Dose: 1 drp Levothyroxine Sodium (Synthroid) 88 mcg PO 0600 [facility] Last Admin: 08/26/17 05:54 Dose: 88 mcg Loperamide HCl (Imodium) 2 mg PO ASDIR PRN PRN Reason: Diarrhea/Loose Stools Loratadine (Claritin) 10 mg PO DAILYPRN PRN PRN Reason: Sinus Symptoms Magnesium Hydroxide (Milk Of Magnesium) 30 ml PO DAILYPRN PRN PRN Reason: Constipation Mineral Oil/White Petrolatum (Eucerin Cream) 0 gm TOP BIDPRN PRN PRN Reason: Dry Skin (Venetoclax [ (Venclexta] 2 Tab)) 2 tab PO DAILY [facility] Ondansetron HCl (Zofran Odt) 4 mg PO Q6H PRN PRN Reason: Nausea/Vomiting Ondansetron HCl (Zofran) 4 mg IVP Q6H PRN PRN Reason: Nausea/Vomiting Pantoprazole Sodium (Protonix) 40 mg PO DAILY [facility] Last Admin: 08/26/17 08:35 Dose: 40 mg Phenol (Chloraseptic [place] 180 Ml Bot) 0 ml PO PRN PRN PRN Reason: Sore Throat Pilocarpine HCl (Isopto Carpine 1% Ophth Soln) 1 drop EA EYE BID [facility] Last Admin: 08/26/17 08:56 Dose: 1 drp Promethazine HCl (Phenergan) 25 mg PO Q8H PRN PRN Reason: Nausea Promethazine HCl/Codeine (Phenergan/Codeine Syrup) 5 ml PO Q4H PRN PRN Reason: Cough 2ND LINE Saccharomyces Boulardii (Florastor) 250 mg PO DAILY [facility] Last Admin: 08/26/17 08:35 Dose: 250 mg Senna (Senokot) 2 tab PO HSPRN PRN PRN Reason: Constipation Sodium Chloride ([place] Nasal [place] 0.65%) 0 ml EA NARE QIDPRN PRN PRN Reason: Nasal Congestion Sodium Chloride (Flush - Normal Saline) 10 ml IVF PRN PRN PRN Reason: Saline Flush Sodium Chloride (Flush - Normal Saline) 10 ml IV DAILY [facility] Last Admin: 08/26/17 08:46 Dose: 10 ml Valacyclovir HCl (Valtrex) 500 mg PO DAILY [facility] Last Admin: 08/26/17 08:35 Dose: 500 mg
[2017-08-26] MEDS: Loperamide HCl 2 MG CAP PO PRN ×2 (12:53→19:16)
--- NOTE | 2017-08-26 16:28 | PRG ---
DATE OF SERVICE: 08/26/2017 SUBJECTIVE: He is still feeling weak, having chills intermittently. No headaches, no cough. Diffic ulty with venous access and a PICC line has been ordered. He has a frail peripheral IV access right now OBJECTIVE: VITAL SIGNS: T-max 99.2, blood pressure 133/64. GENERAL: Awake, alert and oriented. LUNGS: Clear. HEART: S1, S2, regular rate. ABDOMEN: Soft. SKIN: Areas of bruising in the upper extremities. EXTREMITIES: Moves extremities equally. LABORATORY DATA: White cell count 0.1, hemoglobin 9.0, platelets 16,000. ASSESSMENT AND DISCUSSION: Acute myeloid leukemia, following diagnosis of myelodysplastic syndrome a fter a chronic course of CLL treatment, undergoing cytarabine chemotherapy and an additional oral elaine motherapeutic agent, now severe neutropenia/pancytopenia, bilateral lung infiltrates and bacteremia w ith Enterococcus faecium. The patient to continue on daptomycin, cefepime and levofloxacin and a new PICC line will be inserted . May need to start antifungal therapy tomorrow depending on progress.
[2017-08-26 17:23] LABS: Hematocrit 30.9 % (42.0-52.0); Red Blood Cell (RBC) Count 3.48 mill/uL (4.70-6.10); White Blood Cell (WBC) Count 0.5 thou/uL (4.8-10.8)
[2017-08-26 17:38] LABS: Anion Gap 13 mmol/L (10-20); BUN (Urea Nitrogen) 27 mg/dL (8.4-25.7); Calc. Creatinine Clearance 89 mL/min (70-130); Calcium 8.7 mg/dL (7.8-10.44); Carbon Dioxide 22 mmol/L (23-31); Chloride 99 mmol/L (98-107); Estimated GFR-MDRD Greater than 90
[2017-08-26 18:40] LABS: Reactive Lymphocytes 24 % (0-10)
[2017-08-26] MEDS: Sodium Chloride 0.9% 1,000 ML IV SCH (20:49)
[2017-08-26] MEDS: Aripiprazole 2 MG TAB PO SCH (20:52)
[2017-08-26] MEDS: Latanoprost 0.005% Ophth Soln 2.5 ml Bottle EA EYE SCH (20:53)
[2017-08-27] MEDS: Cefepime 2 GM, Syringe 2.5 ML in Sterile Water 10 ML SLOW IVP SCH ×2 (02:30→16:00)
[2017-08-27 04:34] LABS: Hematocrit 27.4 % (42.0-52.0); Mean Platelet Volume 13.3 fL (7.4-10.4); Red Blood Cell (RBC) Count 3.05 mill/uL (4.70-6.10); White Blood Cell (WBC) Count 0.1 thou/uL (4.8-10.8)
[2017-08-27 04:36] LABS: Anion Gap 10 mmol/L (10-20); BUN (Urea Nitrogen) 22 mg/dL (8.4-25.7); Calc. Creatinine Clearance 95 mL/min (70-130); Calcium 8.7 mg/dL (7.8-10.44); Carbon Dioxide 26 mmol/L (23-31); Chloride 98 mmol/L (98-107); Estimated GFR-MDRD Greater than 90
[2017-08-27] MEDS: Levothyroxine Sodium 88 MCG TAB PO SCH (06:30)
[2017-08-27] MEDS ORDERED: Heparin 1,000 UNITS/ML VIAL ONE (07:36)
[2017-08-27] MEDS: Saccharomyces boulardii 250 MG CAP PO SCH (08:40)
[2017-08-27] MEDS: guaiFENesin ER 600 MG TAB PO SCH ×2 (08:40→21:07)
[2017-08-27] MEDS: Potassium Chloride 20 MEQ TAB PO SCH (08:40)
[2017-08-27] MEDS: Hydrochlorothiazide 25 MG TAB PO SCH (08:40)
[2017-08-27] MEDS: DAPTOMYCIN SLOW IVP SCH (08:41)
[2017-08-27] MEDS: Pilocarpine 1% Ophth Drops 15 ML BOT EA EYE SCH ×2 (08:43→21:11)
[2017-08-27] MEDS ORDERED: diphenhydrAMINE 50 MG/ML VIAL IVP SCH (09:15)
[2017-08-27] MEDS ORDERED: Dexamethasone 10 MG/ML VIAL SLOW IVP SCH (09:15)
[2017-08-27] MEDS ORDERED: Acetaminophen 500 MG TAB PO SCH (09:15)
--- NOTE | 2017-08-27 10:58 | PDOC.PN ---
- Subjective Encounter Start Date: 08/27/17 Encounter Start Time: 07:15 still has cough but feels overall better, no fever - Objective Resuscitation Status: Resuscitation Status FULL:Full Resuscitation MAR Reviewed: Yes Vital Signs & Weight: Vital Signs (12 hours) Temp Pulse Resp BP BP Pulse Ox 08/27/17 07:45 99.5 F 105 H 16 122/60 95 08/27/17 04:00 98.9 F 110 H 20 128/63 95 08/27/17 00:00 98.2 F 111 H 16 141/71 H 92 L Weight Admit Weight 171 lb 4.8 oz Weight 184 lb 4.8 oz I&O: 08/26/17 08/27/17 08/28/17 06:59 06:59 06:59 Intake Total 940 2550 0 Output Total 750 550 Balance 190 2000 0 Result Diagrams: 08/27/17 04:01 08/27/17 03:59 Phys Exam - Physical Examination Constitutional: NAD HEENT: PERRLA, moist MMs, sclera anicteric Neck: no JVD, supple Respiratory: no wheezing, no rales, no rhonchi Cardiovascular: RRR, no significant murmur, no rub Gastrointestinal: soft, non-tender, no distention, positive bowel sounds Musculoskeletal: no edema, pulses present Neurological: non-focal, normal sensation Lymphatic: no nodes Psychiatric: normal affect Skin: no rash, normal turgor Dx/Plan (1) Bacteremia due to Enterococcus Code(s): R78.81 - BACTEREMIA; B95.2 - ENTEROCOCCUS THE CAUSE OF DISEASES CLASSIFIED ELSEWHERE Status: Acute (2) Hyperkalemia Code(s): E87.5 - HYPERKALEMIA Status: Acute (3) Multifocal pneumonia Code(s): J18.9 - PNEUMONIA, UNSPECIFIED ORGANISM Status: Acute (4) Neutropenic fever Code(s): D70.9 - NEUTROPENIA, UNSPECIFIED; R50.81 - FEVER PRESENTING WITH CONDITIONS CLASSIFIED ELSEWHERE Status: Acute (5) Sepsis with acute organ dysfunction Code(s): A41.9 - SEPSIS, UNSPECIFIED ORGANISM; R65.20 - SEVERE SEPSIS WITHOUT SEPTIC SHOCK Status: Acute (6) Thrombocytopenia Code(s): D69.6 - THROMBOCYTOPENIA, UNSPECIFIED Status: Acute (7) AML (acute myeloblastic leukemia) Code(s): C92.00 - ACUTE MYELOBLASTIC LEUKEMIA, NOT HAVING ACHIEVED REMISSION Status: Chronic (8) Cholelithiases Code(s): K80.20 - CALCULUS OF GALLBLADDER W/O CHOLECYSTITIS W/O OBSTRUCTION Status: Chronic (9) Dyslipidemia Code(s): E78.5 - HYPERLIPIDEMIA, UNSPECIFIED Status: Chronic (10) Hypothyroidism Code(s): E03.9 - HYPOTHYROIDISM, UNSPECIFIED Status: Chronic (11) Sepsis associated with vascular access catheter Code(s): T82.7XXA - INFECT/INFLM REACT D/T OTH CARDI/VASC DEV/IMPLNT/GRFT, INIT ; A41.9 - SEPSIS, UNSPECIFIED ORGANISM Status: Acute - Plan cont current plan of care, continue antibiotics * today PICC line * before PICC line will transfuse platelet after premedication * continue IV antibiotics as per Dr otero * duration of therapy will defer to Dr otero * medication reviewed as below * symptomatic treatment. * today discussed goal of care and he wanted to continue to fight with his disease Review of Systems - Review of Systems Constitutional: Weakness, Malaise. negative: Fever, Chills, Sweats, Other ENT: negative: Ear Pain, Ear Discharge, Nose Pain, Nose Discharge, Nose Congestion, Mouth Pain, Mouth Swelling, Throat Pain, Throat Swelling, Other Respiratory: Cough. negative: Dry, Shortness of Breath, Hemoptysis, SOB with Excertion, Pleuritic Pain, Sputum, Wheezing Cardiovascular: negative: Chest Pain, Palpitations, Orthopnea, Paroxysmal Noc. Dyspnea, Edema, Light Headedness, Other Gastrointestinal: negative: Nausea, Vomiting, Abdominal Pain, Diarrhea, Constipation, Melena, Hematochezia, Other Genitourinary: negative: Dysuria, Frequency, Incontinence, Hematuria, Retention , Other Musculoskeletal: negative: Neck Pain, Shoulder Pain, Arm Pain, Back Pain, Hand Pain, Leg Pain, Foot Pain, Other Skin: negative: Rash, Lesions, Mason, Bruising, Other - Medications/Allergies Allergies/Adverse Reactions: Allergies Allergy/AdvReac Type Severity Reaction Status Date / Time No Known Allergies Allergy Unverified 12/27/16 11:21 Medications: Current Medications Acetaminophen (Tylenol) 650 mg PO Q4H PRN PRN Reason: Headache/Fever or Pain Acetaminophen/Codeine Phosphate (Tylenol #3) 1 tab PO Q6H PRN PRN Reason: Pain Hydrocodone Bitart/Acetaminophen ([place] 5/325) 1 tab PO Q4H PRN PRN Reason: Moderate Pain (4-6) Al Hydroxide/Mg Hydroxide (Maalox) 30 ml PO Q6H PRN PRN Reason: Heartburn or Indigestion Albuterol/Ipratropium (Duoneb) 3 ml NEB Q1ZZ-SL PRN PRN Reason: SOB &/or Wheezing Alprazolam (Xanax) 0.5 mg PO HS PRN PRN Reason: Anxiety Aripiprazole (Abilify) [address] [facility] Last Admin: 08/26/17 20:52 Dose: 1 mg Artificial Tears (Tears Naturale) 0 drop EA EYE PRN PRN PRN Reason: Dry Eyes Dexamethasone (Decadron) [address] [facility] Stop: 08/27/17 11:00 Last Admin: 08/27/17 09:25 Dose: 10 mg Fluvoxamine Maleate (Luvox) [address] [facility] Last Admin: 08/26/17 20:52 Dose: 100 mg Guaifenesin (Robitussin Sf) 200 mg PO Q4H PRN PRN Reason: Cough Guaifenesin (Mucinex) [address] [facility] Last Admin: 08/27/17 08:40 Dose: 600 mg Hydralazine HCl (Apresoline) 10 mg SLOW IVP Q4H PRN PRN Reason: Systolic BP > 180 Hydrochlorothiazide (Hydrochlorothiazide) 12.[address] [facility] Last Admin: 08/27/17 08:40 Dose: 12.5 mg Hyoscyamine Sulfate (Levsin) 0.125 mg PO Q4H PRN PRN Reason: GI Cramping Cefepime HCl 2 gm/ Syringe 2.5 (ml/ Sterile Water) 12.5 mls @ 150 mls/hr SLOW IVP 0300,1500 [facility] Last Admin: 08/27/17 02:30 Dose: 12.5 mls Levofloxacin 500 mg/ Device 100 mls @ 100 mls/hr IVPB Q24HR [facility] Last Admin: 08/27/17 06:30 Dose: 100 mls Sodium Chloride (Normal Saline 0.9%) 1,000 mls @ 75 mls/hr IV .[id number] [facility] Last Admin: 08/26/17 20:49 Dose: 1,000 mls Daptomycin 440 mg/ Syringe 8.8 mls @ 0 mls/hr SLOW IVP 0800 [facility] PRN Reason: As Directed Last Admin: 08/27/17 08:41 Dose: 8.8 mls Latanoprost (Xalatan 0.005% Ophth Soln) [address] [facility] Last Admin: 08/26/17 20:53 Dose: 1 drp Levothyroxine Sodium (Synthroid) [address] [facility] Last Admin: 08/27/17 06:30 Dose: 88 mcg Loperamide HCl (Imodium) 2 mg PO ASDIR PRN PRN Reason: Diarrhea/Loose Stools Last Admin: 08/26/17 19:16 Dose: 2 mg Loratadine (Claritin) 10 mg PO DAILYPRN PRN PRN Reason: Sinus Symptoms Magnesium Hydroxide (Milk Of Magnesium) 30 ml PO DAILYPRN PRN PRN Reason: Constipation Mineral Oil/White Petrolatum (Eucerin Cream) 0 gm TOP BIDPRN PRN PRN Reason: Dry Skin (Venetoclax [ (Venclexta] 2 Tab)) [address] [facility] Ondansetron HCl (Zofran Odt) 4 mg PO Q6H PRN PRN Reason: Nausea/Vomiting Ondansetron HCl (Zofran) 4 mg IVP Q6H PRN PRN Reason: Nausea/Vomiting Pantoprazole Sodium (Protonix) [address] [facility] Last Admin: 08/27/17 08:40 Dose: 40 mg Phenol (Chloraseptic [place] 180 Ml Bot) 0 ml PO PRN PRN PRN Reason: Sore Throat Pilocarpine HCl (Isopto Carpine 1% Ophth Soln) [address] [facility] Last Admin: 08/27/17 08:43 Dose: 1 drp Potassium Chloride (K-Dur) 20 meq PO QAM-WM [facility] Last Admin: 08/27/17 08:40 Dose: 20 meq Promethazine HCl (Phenergan) 25 mg PO Q8H PRN PRN Reason: Nausea Promethazine HCl/Codeine (Phenergan/Codeine Syrup) 5 ml PO Q4H PRN PRN Reason: Cough 2ND LINE Saccharomyces Boulardii (Florastor) [address] [facility] Last Admin: 08/27/17 08:40 Dose: 250 mg Senna (Senokot) 2 tab PO HSPRN PRN PRN Reason: Constipation Sodium Chloride ([place] Nasal [place] 0.65%) 0 ml EA NARE QIDPRN PRN PRN Reason: Nasal Congestion Sodium Chloride (Flush - Normal Saline) 10 ml IVF PRN PRN PRN Reason: Saline Flush Sodium Chloride (Flush - Normal Saline) [address] [facility] Last Admin: 08/27/17 08:41 Dose: 10 ml Valacyclovir HCl (Valtrex) [address] [facility] Last Admin: 08/27/17 08:40 Dose: 500 mg
[2017-08-27] MEDS: Sodium Chloride 0.9% 1,000 ML IV SCH (12:57)
[2017-08-27] MEDS: Loperamide HCl 2 MG CAP PO PRN ×2 (12:57→19:36)
--- NOTE | 2017-08-27 16:04 | SPC ---
PICC PLACEMENT ULTRASOUND GUIDED VENOUS ACCESS: (Peripherally Inserted Central Catheter) 08/27/17 HISTORY: 76-year-old male with leukemia and neutropenic fever. TECHNIQUE: Catheter caliber: 5 [place] Catheter trim length: 47 cm Catheter lumen number: Single Catheter tip location: Superior vena cava/right atrial junction Vein accessed: Left basilic vein was accessed. The basilic vein joins the brachial vein more superior ly in the left arm, becoming a single vein. Signed, informed consent was obtained. A tourniquet was applied at the proximal aspect of the arm. The arm was prepared and draped in the usual sterile fashion. A 25 gauge needle was used to apply bu ffered lidocaine superficially. The vein was punctured with a 21 gauge micropuncture needle under ul trasound guidance. A 0.018 inch guide wire was advanced through the micropuncture needle and into th e vein. Under fluoroscopic guidance, the guide wire was advanced to the right atrium. The PICC (per ipherally inserted central catheter) was flushed and trimmed to the appropriate length. The skin pun cture hole was widened with a blade. The micropuncture needle was exchanged over the guide wire for a 5 [place] peel-away dilator sheath. The dilator was exchanged over the guide wire for the PICC, whi ch was then further advanced under fluoroscopy. The sheath and guide wire were removed. The PICC wa s flushed again and secured in place at the arm. The patient tolerated the procedure well. There wa s no complication. IMPRESSION: Successful placement of PICC (peripherally inserted central catheter) kate [] POS: [facility]
--- NOTE | 2017-08-27 17:30 | RAD ---
EXAM: ONE VIEW CHEST 08/27/17 COMPARISON: 08/23/17 HISTORY: Followup pulmonary infiltrates. FINDINGS: Persistent interstitial and alveolar opacification in the upper lobes. Slight progression in the lowe r lobes. Stable cardiac silhouette. Stable PICC line. IMPRESSION: Worsening infiltrates in the lung bases. Continued surveillance. POS: [facility]
--- NOTE | 2017-08-27 18:43 | PRG ---
DATE OF SERVICE: 08/27/2017 SUBJECTIVE: Having diarrhea quite profuse. No abdominal cramps, no respiratory symptoms. A PICC line was placed in the left upper extremity, voiding without difficulty. OBJECTIVE: VITAL SIGNS: T-max 100, blood pressure 120/58 and pulse 97. GENERAL: Appears in no distress. LUNGS: Clear. CARDIAC: S1 and S2, regular rate. ABDOMEN: Soft and not distended. EXTREMITIES: Moves all extremities equally. LABORATORY DATA: White cell count 0.1, hemoglobin 9.4 and platelets 8,000. Sodium 131, creatinine 0.77 and potassium 3.1. Catheter tip culture is still being worked up. ASSESSMENT AND DISCUSSION: Acute myeloid leukemia following myelodysplastic syndrome, which was subsequently a chronic course of CLL treatment. Currently undergoing cytarabine chemo and an additional oral chemotherapeutic agent, now with severe neutropenia, recurrent fevers, bilateral pulmonary infiltrates, bacteremia with Enterococcus faecium. The patient has had a new line inserted. We will have him bring his antifungal that he had been taken prescribed by MD Anton from home, which is his isavuconazole. Resume taking it at the same dosage that he had been taken prior to this admission. Continue cefepime, levofloxacin, and repeat the chest x ray. MTDD
[2017-08-27] MEDS: Aripiprazole 2 MG TAB PO SCH (21:06)
[2017-08-27] MEDS: Latanoprost 0.005% Ophth Soln 2.5 ml Bottle EA EYE SCH (21:10)
[2017-08-28] MEDS: Cefepime 2 GM, Syringe 2.5 ML in Sterile Water 10 ML SLOW IVP SCH ×2 (02:57→14:53)
[2017-08-28 04:45] LABS: White Blood Cell (WBC) Count 0.1 thou/uL (4.8-10.8)
[2017-08-28 04:58] LABS: Hematocrit 27.6 % (42.0-52.0); Mean Platelet Volume 7.8 fL (7.4-10.4); Red Blood Cell (RBC) Count 3.05 mill/uL (4.70-6.10)
[2017-08-28 05:07] LABS: Anion Gap 12 mmol/L (10-20); BUN (Urea Nitrogen) 29 mg/dL (8.4-25.7); Calc. Creatinine Clearance 84 mL/min (70-130); Calcium 9.2 mg/dL (7.8-10.44); Carbon Dioxide 29 mmol/L (23-31); Chloride 99 mmol/L (98-107); Estimated GFR-MDRD 85
[2017-08-28] MEDS: Levothyroxine Sodium 88 MCG TAB PO SCH (06:20)
[2017-08-28] MEDS: Hydrochlorothiazide 25 MG TAB PO SCH (09:19)
[2017-08-28] MEDS: Sodium Chloride 0.9% 1,000 ML IV SCH (09:19)
[2017-08-28] MEDS: Potassium Chloride 20 MEQ TAB PO SCH (09:21)
[2017-08-28] MEDS: guaiFENesin ER 600 MG TAB PO SCH ×2 (09:21→23:51)
[2017-08-28] MEDS: Saccharomyces boulardii 250 MG CAP PO SCH (09:21)
[2017-08-28] MEDS: Pilocarpine 1% Ophth Drops 15 ML BOT EA EYE SCH ×2 (09:22→22:12)
[2017-08-28] MEDS: DAPTOMYCIN SLOW IVP SCH (10:09)
--- NOTE | 2017-08-28 10:53 | PDOC.PN ---
- Subjective Encounter Start Date: 08/28/17 Encounter Start Time: 07:00 pt is weak, no fever, has cough, no chest pain, overall pt feels same - Objective Resuscitation Status: Resuscitation Status FULL:Full Resuscitation MAR Reviewed: Yes Vital Signs & Weight: Vital Signs (12 hours) Temp Pulse Resp BP BP Pulse Ox 08/28/17 08:00 97.5 F L 81 20 142/63 H 97 08/28/17 04:00 97.9 F 92 16 118/59 L 96 08/28/17 00:14 95 08/27/17 23:48 97.5 F L 82 16 133/63 95 Weight Admit Weight 171 lb 4.8 oz Weight 184 lb 4.8 oz I&O: 08/27/17 08/28/17 08/29/17 06:59 06:59 06:59 Intake Total 2550 2190 Output Total 550 900 Balance 1999 1290 Result Diagrams: 08/28/17 04:15 08/28/17 04:15 Radiology Reviewed by me: Yes (chest xray) Phys Exam - Physical Examination Constitutional: NAD HEENT: PERRLA, moist MMs, sclera anicteric Neck: no JVD, supple Respiratory: no wheezing, no rhonchi few scattered basal rales Cardiovascular: RRR, no significant murmur, no rub Gastrointestinal: soft, non-tender, no distention, positive bowel sounds Musculoskeletal: no edema, pulses present Neurological: non-focal, normal sensation Lymphatic: no nodes Psychiatric: normal affect, A&O x 3 Skin: no rash, normal turgor Dx/Plan (1) Bacteremia due to Enterococcus Code(s): R78.81 - BACTEREMIA; B95.2 - ENTEROCOCCUS THE CAUSE OF DISEASES CLASSIFIED ELSEWHERE Status: Acute (2) Hyperkalemia Code(s): E87.5 - HYPERKALEMIA Status: Resolved (3) Multifocal pneumonia Code(s): J18.9 - PNEUMONIA, UNSPECIFIED ORGANISM Status: Acute (4) Neutropenic fever Code(s): D70.9 - NEUTROPENIA, UNSPECIFIED; R50.81 - FEVER PRESENTING WITH CONDITIONS CLASSIFIED ELSEWHERE Status: Acute (5) Sepsis with acute organ dysfunction Code(s): A41.9 - SEPSIS, UNSPECIFIED ORGANISM; R65.20 - SEVERE SEPSIS WITHOUT SEPTIC SHOCK Status: Acute (6) Thrombocytopenia Code(s): D69.6 - THROMBOCYTOPENIA, UNSPECIFIED Status: Acute (7) AML (acute myeloblastic leukemia) Code(s): C92.00 - ACUTE MYELOBLASTIC LEUKEMIA, NOT HAVING ACHIEVED REMISSION Status: Chronic (8) Cholelithiases Code(s): K80.20 - CALCULUS OF GALLBLADDER W/O CHOLECYSTITIS W/O OBSTRUCTION Status: Chronic (9) Dyslipidemia Code(s): E78.5 - HYPERLIPIDEMIA, UNSPECIFIED Status: Chronic (10) Hypothyroidism Code(s): E03.9 - HYPOTHYROIDISM, UNSPECIFIED Status: Chronic (11) Sepsis associated with vascular access catheter Code(s): T82.7XXA - INFECT/INFLM REACT D/T OTH CARDI/VASC DEV/IMPLNT/GRFT, INIT ; A41.9 - SEPSIS, UNSPECIFIED ORGANISM Status: Acute (12) Hypokalemia Code(s): E87.6 - HYPOKALEMIA Status: Acute - Plan cont current plan of care, continue antibiotics * continue cefepime, levaquin * add antifungal meds * medication reviewed as below * symptomatic treatment * final antibiotics selection and duration of antibiotics will defer to ID team * pt is at high risk for recurrent admission * his correction prognosis is very poor * consult palliative care for goal of care. * replace extra dose of potassium Review of Systems - Review of Systems Constitutional: Weakness. negative: Fever, Chills, Sweats, Malaise, Other ENT: negative: Ear Pain, Ear Discharge, Nose Pain, Nose Discharge, Nose Congestion, Mouth Pain, Mouth Swelling, Throat Pain, Throat Swelling, Other Respiratory: Cough, Shortness of Breath, SOB with Excertion. negative: Dry, Hemoptysis, Pleuritic Pain, Sputum, Wheezing Cardiovascular: negative: Chest Pain, Palpitations, Orthopnea, Paroxysmal Noc. Dyspnea, Edema, Light Headedness, Other Gastrointestinal: negative: Nausea, Vomiting, Abdominal Pain, Diarrhea, Constipation, Melena, Hematochezia, Other Genitourinary: negative: Dysuria, Frequency, Incontinence, Hematuria, Retention , Other Musculoskeletal: negative: Neck Pain, Shoulder Pain, Arm Pain, Back Pain, Hand Pain, Leg Pain, Foot Pain, Other Skin: negative: Rash, Lesions, Mason, Bruising, Other - Medications/Allergies Allergies/Adverse Reactions: Allergies Allergy/AdvReac Type Severity Reaction Status Date / Time No Known Allergies Allergy Unverified 12/27/16 11:21 Medications: Current Medications Acetaminophen (Tylenol) 650 mg PO Q4H PRN PRN Reason: Headache/Fever or Pain Acetaminophen/Codeine Phosphate (Tylenol #3) 1 tab PO Q6H PRN PRN Reason: Pain Hydrocodone Bitart/Acetaminophen ([place] 5/325) 1 tab PO Q4H PRN PRN Reason: Moderate Pain (4-6) Al Hydroxide/Mg Hydroxide (Maalox) 30 ml PO Q6H PRN PRN Reason: Heartburn or Indigestion Albuterol/Ipratropium (Duoneb) 3 ml NEB [id number] PRN PRN Reason: SOB &/or Wheezing Alprazolam (Xanax) 0.5 mg PO HS PRN PRN Reason: Anxiety Aripiprazole (Abilify) 1 mg PO QPM [facility] Last Admin: 08/27/17 21:06 Dose: 1 mg Artificial Tears (Tears Naturale) 0 drop EA EYE PRN PRN PRN Reason: Dry Eyes Fluvoxamine Maleate (Luvox) 100 mg PO HS [facility] Last Admin: 08/27/17 21:07 Dose: 100 mg Guaifenesin (Robitussin Sf) 200 mg PO Q4H PRN PRN Reason: Cough Last Admin: 08/27/17 21:09 Dose: 200 mg Guaifenesin (Mucinex) 600 mg PO Q12HR [facility] Last Admin: 08/28/17 09:21 Dose: 600 mg Hydralazine HCl (Apresoline) 10 mg SLOW IVP Q4H PRN PRN Reason: Systolic BP > 180 Hydrochlorothiazide (Hydrochlorothiazide) 12.5 mg PO DAILY [facility] Last Admin: 08/28/17 09:19 Dose: 12.5 mg Hyoscyamine Sulfate (Levsin) 0.125 mg PO Q4H PRN PRN Reason: GI Cramping Cefepime HCl 2 gm/ Syringe 2.5 (ml/ Sterile Water) 12.5 mls @ 150 mls/hr SLOW IVP 0300,1500 [facility] Last Admin: 08/28/17 02:57 Dose: 12.5 mls Levofloxacin 500 mg/ Device 100 mls @ 100 mls/hr IVPB Q24HR [facility] Last Admin: 08/28/17 05:49 Dose: 100 mls Sodium Chloride (Normal Saline 0.9%) 1,000 mls @ 75 mls/hr IV .[id number] [facility] Last Admin: 08/28/17 09:19 Dose: 1,000 mls Daptomycin 440 mg/ Syringe 8.8 mls @ 0 mls/hr SLOW IVP 0800 [facility] PRN Reason: As Directed Last Admin: 08/28/17 10:09 Dose: 8.8 mls Latanoprost (Xalatan 0.005% Ophth Soln) 1 drop EA EYE HS [facility] Last Admin: 08/27/17 21:10 Dose: 1 drp Levothyroxine Sodium (Synthroid) 88 mcg PO 0600 [facility] Last Admin: 08/27/17 06:30 Dose: 88 mcg Loperamide HCl (Imodium) 2 mg PO ASDIR PRN PRN Reason: Diarrhea/Loose Stools Last Admin: 08/27/17 19:36 Dose: 2 mg Loratadine (Claritin) 10 mg PO DAILYPRN PRN PRN Reason: Sinus Symptoms Magnesium Hydroxide (Milk Of Magnesium) 30 ml PO DAILYPRN PRN PRN Reason: Constipation Mineral Oil/White Petrolatum (Eucerin Cream) 0 gm TOP BIDPRN PRN PRN Reason: Dry Skin (Venetoclax [ (Venclexta] 2 Tab)) 2 tab PO DAILY [facility] Ondansetron HCl (Zofran Odt) 4 mg PO Q6H PRN PRN Reason: Nausea/Vomiting Ondansetron HCl (Zofran) 4 mg IVP Q6H PRN PRN Reason: Nausea/Vomiting Pantoprazole Sodium (Protonix) 40 mg PO DAILY [facility] Last Admin: 08/28/17 09:21 Dose: 40 mg Phenol (Chloraseptic [place] 180 Ml Bot) 0 ml PO PRN PRN PRN Reason: Sore Throat Pilocarpine HCl (Isopto Carpine 1% Ophth Soln) 1 drop EA EYE BID [facility] Last Admin: 08/28/17 09:22 Dose: 1 drp Potassium Chloride (K-Dur) 20 meq PO QAM-WM [facility] Last Admin: 08/28/17 09:21 Dose: 20 meq Promethazine HCl (Phenergan) 25 mg PO Q8H PRN PRN Reason: Nausea Promethazine HCl/Codeine (Phenergan/Codeine Syrup) 5 ml PO Q4H PRN PRN Reason: Cough 2ND LINE Saccharomyces Boulardii (Florastor) 250 mg PO DAILY [facility] Last Admin: 08/28/17 09:21 Dose: 250 mg Senna (Senokot) 2 tab PO HSPRN PRN PRN Reason: Constipation Sodium Chloride ([place] Nasal [place] 0.65%) 0 ml EA NARE QIDPRN PRN PRN Reason: Nasal Congestion Sodium Chloride (Flush - Normal Saline) 10 ml IVF PRN PRN PRN Reason: Saline Flush Sodium Chloride (Flush - Normal Saline) 10 ml IV DAILY [facility] Last Admin: 08/28/17 09:21 Dose: 10 ml Valacyclovir HCl (Valtrex) 500 mg PO DAILY [facility] Last Admin: 08/28/17 09:21 Dose: 500 mg
[2017-08-28] MEDS ORDERED: Potassium Chloride 20 MEQ TAB PO SCH (11:30)
[2017-08-28] MEDS: Phenergan/Codeine 10-6.25mg/5ml UDCUP PO PRN ×2 (11:36→22:12)
[2017-08-28] MEDS ORDERED: Potassium Chloride 20 MEQ/100 ML PREMIX BAG IVPB SCH (13:00)
[2017-08-28] MEDS: Benzonatate 100 MG CAP PO PRN ×2 (14:51→22:10)
[2017-08-28] MEDS: Aripiprazole 2 MG TAB PO SCH (22:11)
[2017-08-28] MEDS: Latanoprost 0.005% Ophth Soln 2.5 ml Bottle EA EYE SCH (22:13)
[2017-08-29] MEDS: Cefepime 2 GM, Syringe 2.5 ML in Sterile Water 10 ML SLOW IVP SCH ×2 (03:05→15:53)
[2017-08-29] MEDS: Levothyroxine Sodium 88 MCG TAB PO SCH (06:25)
[2017-08-29] MEDS ORDERED: CRESEMBA PO SCH (09:00)
[2017-08-29] MEDS: DAPTOMYCIN SLOW IVP SCH (10:20)
[2017-08-29] MEDS: Potassium Chloride 20 MEQ TAB PO SCH (10:22)
[2017-08-29] MEDS: Saccharomyces boulardii 250 MG CAP PO SCH (10:22)
[2017-08-29] MEDS: guaiFENesin ER 600 MG TAB PO SCH ×2 (10:22→21:13)
[2017-08-29] MEDS: Hydrochlorothiazide 25 MG TAB PO SCH (10:25)
--- NOTE | 2017-08-29 10:26 | PDOC.PN ---
- Subjective Encounter Start Date: 08/29/17 Encounter Start Time: 10:00 Patient seen and examined. No new complaints. No overnight events - Objective Resuscitation Status: Resuscitation Status FULL:Full Resuscitation MAR Reviewed: Yes Vital Signs & Weight: Vital Signs (12 hours) Temp Pulse Resp BP Pulse Ox 08/29/17 07:43 99.7 F H 110 H 22 H 141/68 H 95 08/29/17 00:19 94 L Weight Admit Weight 171 lb 4.8 oz Weight 184 lb 4.8 oz I&O: 08/28/17 08/29/17 08/30/17 06:59 06:59 06:59 Intake Total 2190 920 Output Total 900 450 Balance 1290 470 Result Diagrams: 08/28/17 04:15 08/28/17 04:15 Phys Exam - Physical Examination Constitutional: NAD HEENT: PERRLA, moist MMs, sclera anicteric Neck: no JVD, supple Respiratory: no wheezing, no rales, no rhonchi Cardiovascular: RRR, no significant murmur, no rub Gastrointestinal: soft, non-tender, no distention, positive bowel sounds Musculoskeletal: no edema, pulses present Neurological: non-focal, normal sensation Lymphatic: no nodes Psychiatric: normal affect Skin: no rash, normal turgor Dx/Plan (1) Bacteremia due to Enterococcus Code(s): R78.81 - BACTEREMIA; B95.2 - ENTEROCOCCUS THE CAUSE OF DISEASES CLASSIFIED ELSEWHERE Status: Acute (2) Hyperkalemia Code(s): E87.5 - HYPERKALEMIA Status: Resolved (3) Multifocal pneumonia Code(s): J18.9 - PNEUMONIA, UNSPECIFIED ORGANISM Status: Acute (4) Neutropenic fever Code(s): D70.9 - NEUTROPENIA, UNSPECIFIED; R50.81 - FEVER PRESENTING WITH CONDITIONS CLASSIFIED ELSEWHERE Status: Acute (5) Sepsis with acute organ dysfunction Code(s): A41.9 - SEPSIS, UNSPECIFIED ORGANISM; R65.20 - SEVERE SEPSIS WITHOUT SEPTIC SHOCK Status: Acute (6) Thrombocytopenia Code(s): D69.6 - THROMBOCYTOPENIA, UNSPECIFIED Status: Acute (7) AML (acute myeloblastic leukemia) Code(s): C92.00 - ACUTE MYELOBLASTIC LEUKEMIA, NOT HAVING ACHIEVED REMISSION Status: Chronic (8) Cholelithiases Code(s): K80.20 - CALCULUS OF GALLBLADDER W/O CHOLECYSTITIS W/O OBSTRUCTION Status: Chronic (9) Dyslipidemia Code(s): E78.5 - HYPERLIPIDEMIA, UNSPECIFIED Status: Chronic (10) Hypothyroidism Code(s): E03.9 - HYPOTHYROIDISM, UNSPECIFIED Status: Chronic (11) Sepsis associated with vascular access catheter Code(s): T82.7XXA - INFECT/INFLM REACT D/T OTH CARDI/VASC DEV/IMPLNT/GRFT, INIT ; A41.9 - SEPSIS, UNSPECIFIED ORGANISM Status: Acute (12) Hypokalemia Code(s): E87.6 - HYPOKALEMIA Status: Acute - Plan cont current plan of care, 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 * Will ask dr otero to decide iv antibiotics and decide on duration of therapy, after that employment evaluator/case manager can arrange IV antibiotic therapy. Review of Systems - Review of Systems Constitutional: negative: Fever, Chills, Sweats, Weakness, Malaise, Other ENT: negative: Ear Pain, Ear Discharge, Nose Pain, Nose Discharge, Nose Congestion, Mouth Pain, Mouth Swelling, Throat Pain, Throat Swelling, Other Respiratory: Cough, Sputum. negative: Dry, Shortness of Breath, Hemoptysis, SOB with Excertion, Pleuritic Pain, Wheezing Cardiovascular: negative: Chest Pain, Palpitations, Orthopnea, Paroxysmal Noc. Dyspnea, Edema, Light Headedness, Other Gastrointestinal: negative: Nausea, Vomiting, Abdominal Pain, Diarrhea, Constipation, Melena, Hematochezia, Other Genitourinary: negative: Dysuria, Frequency, Incontinence, Hematuria, Retention , Other Musculoskeletal: negative: Neck Pain, Shoulder Pain, Arm Pain, Back Pain, Hand Pain, Leg Pain, Foot Pain, Other Skin: negative: Rash, Lesions, Mason, Bruising, Other - Medications/Allergies Allergies/Adverse Reactions: Allergies Allergy/AdvReac Type Severity Reaction Status Date / Time No Known Allergies Allergy Unverified 12/27/16 11:21 Medications: Current Medications Acetaminophen (Tylenol) 650 mg PO Q4H PRN PRN Reason: Headache/Fever or Pain Acetaminophen/Codeine Phosphate (Tylenol #3) 1 tab PO Q6H PRN PRN Reason: Pain Hydrocodone Bitart/Acetaminophen ([place] 5/325) 1 tab PO Q4H PRN PRN Reason: Moderate Pain (4-6) Al Hydroxide/Mg Hydroxide (Maalox) 30 ml PO Q6H PRN PRN Reason: Heartburn or Indigestion Albuterol/Ipratropium (Duoneb) 3 ml NEB [id number] PRN PRN Reason: SOB &/or Wheezing Alprazolam (Xanax) 0.5 mg PO HS PRN PRN Reason: Anxiety Last Admin: 08/28/17 14:50 Dose: 0.5 mg Aripiprazole (Abilify) 1 mg PO QPM [facility] Last Admin: 08/28/17 22:11 Dose: 1 mg Artificial Tears (Tears Naturale) 0 drop EA EYE PRN PRN PRN Reason: Dry Eyes Benzonatate (Tessalon) 100 mg PO Q4H PRN PRN Reason: Cough Last Admin: 08/28/17 22:10 Dose: 100 mg Fluvoxamine Maleate (Luvox) 100 mg PO HS [facility] Last Admin: 08/28/17 22:12 Dose: 100 mg Guaifenesin (Robitussin Sf) 200 mg PO Q4H PRN PRN Reason: Cough Last Admin: 08/27/17 21:09 Dose: 200 mg Guaifenesin (Mucinex) 600 mg PO Q12HR [facility] Last Admin: 08/29/17 10:22 Dose: 600 mg Hydralazine HCl (Apresoline) 10 mg SLOW IVP Q4H PRN PRN Reason: Systolic BP > 180 Hydrochlorothiazide (Hydrochlorothiazide) 12.5 mg PO DAILY [facility] Last Admin: 08/29/17 10:25 Dose: 12.5 mg Hyoscyamine Sulfate (Levsin) 0.125 mg PO Q4H PRN PRN Reason: GI Cramping Cefepime HCl 2 gm/ Syringe 2.5 (ml/ Sterile Water) 12.5 mls @ 150 mls/hr SLOW IVP 0300,1500 [facility] Last Admin: 08/29/17 03:05 Dose: 12.5 mls Levofloxacin 500 mg/ Device 100 mls @ 100 mls/hr IVPB Q24HR [facility] Last Admin: 08/29/17 06:24 Dose: 100 mls Daptomycin 440 mg/ Syringe 8.8 mls @ 0 mls/hr SLOW IVP 0800 [facility] PRN Reason: As Directed Last Admin: 08/29/17 10:20 Dose: 8.8 mls Latanoprost (Xalatan 0.005% Ophth Soln) 1 drop EA EYE HS [facility] Last Admin: 08/28/17 22:13 Dose: 1 drp Levothyroxine Sodium (Synthroid) 88 mcg PO 0600 [facility] Last Admin: 08/29/17 06:25 Dose: 88 mcg Loperamide HCl (Imodium) 2 mg PO ASDIR PRN PRN Reason: Diarrhea/Loose Stools Last Admin: 08/27/17 19:36 Dose: 2 mg Loratadine (Claritin) 10 mg PO DAILYPRN PRN PRN Reason: Sinus Symptoms Magnesium Hydroxide (Milk Of Magnesium) 30 ml PO DAILYPRN PRN PRN Reason: Constipation Mineral Oil/White Petrolatum (Eucerin Cream) 0 gm TOP BIDPRN PRN PRN Reason: Dry Skin (Venetoclax [ (Venclexta] 2 Tab)) 2 tab PO DAILY [facility] Cresemba Oral 0 each PO DAILY [facility] Ondansetron HCl (Zofran Odt) 4 mg PO Q6H PRN PRN Reason: Nausea/Vomiting Ondansetron HCl (Zofran) 4 mg IVP Q6H PRN PRN Reason: Nausea/Vomiting Pantoprazole Sodium (Protonix) 40 mg PO DAILY [facility] Last Admin: 08/29/17 10:22 Dose: 40 mg Phenol (Chloraseptic [place] 180 Ml Bot) 0 ml PO PRN PRN PRN Reason: Sore Throat Pilocarpine HCl (Isopto Carpine 1% Ophth Soln) 1 drop EA EYE BID [facility] Last Admin: 08/29/17 10:27 Dose: 1 drp Potassium Chloride (K-Dur) 20 meq PO QAM-WM [facility] Last Admin: 08/29/17 10:22 Dose: 20 meq Promethazine HCl (Phenergan) 25 mg PO Q8H PRN PRN Reason: Nausea Promethazine HCl/Codeine (Phenergan/Codeine Syrup) 5 ml PO Q4H PRN PRN Reason: Cough 2ND LINE Last Admin: 08/28/17 22:12 Dose: 5 ml Saccharomyces Boulardii (Florastor) 250 mg PO DAILY [facility] Last Admin: 12/08/17 10:22 Dose: 250 mg Senna (Senokot) 2 tab PO HSPRN PRN PRN Reason: Constipation Sodium Chloride ([place] Nasal [place] 0.65%) 0 ml EA NARE QIDPRN PRN PRN Reason: Nasal Congestion Sodium Chloride (Flush - Normal Saline) 10 ml IVF PRN PRN PRN Reason: Saline Flush Sodium Chloride (Flush - Normal Saline) 10 ml IV DAILY [facility] Last Admin: 08/29/17 10:25 Dose: 10 ml Valacyclovir HCl (Valtrex) 500 mg PO DAILY [facility] Last Admin: 08/29/17 10:25 Dose: 500 mg
[2017-08-29] MEDS: Pilocarpine 1% Ophth Drops 15 ML BOT EA EYE SCH ×2 (10:27→21:16)
--- NOTE | 2017-08-29 13:15 | RAD ---
CHEST ONE VIEW: HISTORY: Fever. COMPARISON: 08/27/2017 FINDINGS: Stable cardiac silhouette. The pulmonary vessels are within normal limits. Patchy interstitial and alveolar opacities throughout the lung parenchyma. No significant pleural fluid. No pneumothorax. Stable left-sided PICC line. IMPRESSION: Persistent interstitial and alveolar infiltrates. POS: [facility]
[2017-08-29] MEDS ORDERED: VORICONAZOLE IVPB SCH (18:00)
[2017-08-29] MEDS ORDERED: SODIUM CHLORIDE 0.9% IVPB SCH (18:00)
[2017-08-29] MEDS ORDERED: Lidocaine 4% PF 5 ML AMP NEB SCH (18:30)
[2017-08-29] MEDS: Benzonatate 100 MG CAP PO PRN (19:09)
[2017-08-29] MEDS: CRESEMBA PO SCH (19:09)
[2017-08-29] MEDS: VORICONAZOLE IVPB SCH (19:10)
[2017-08-29] MEDS: SODIUM CHLORIDE 0.9% IVPB SCH (19:10)
--- NOTE | 2017-08-29 19:21 | CON ---
DATE OF SERVICE: 08/29/2017 SERVICE: Pulmonary Medicine. REASON FOR CONSULTATION: Pulmonary infiltrate. HISTORY OF PRESENT ILLNESS: The patient is a 76-year-old white male. He has a past medical history significant for CLL. He had chemotherapy for this. He developed myelodysplastic syndrome. He prese nts to the hospital because of an increasing cough and congestion with some low grade fevers over per iod of 2-3 weeks. He is bringing up clear sputum. He was initially placed in the hospital on broad spectrum antibiotics. He seemed to improve slightly. That being said, he has infiltrate that is per sistent. I was consulted to help to evaluate this infiltrate. He currently is having rigors and sha angela chills on most nights. He is severely immunocompromised. PAST MEDICAL HISTORY: 1. 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 2. History of prostate cancer. 3. Hypertension. 4. Dyslipidemia. 5. Hypothyroidism. 6. Osteoarthritis. 7. Gastroesophageal reflux disease. 8. Glaucoma. PAST SURGICAL HISTORY: 1. Right total knee replacement. 2. Prostatectomy. SOCIAL HISTORY: Negative for tobacco, alcohol or illicit drug use. He has a [id number] history of smoking, but quit over 10 years ago. FAMILY HISTORY: Noncontributory. ALLERGIES: No known drug allergies. MEDICATIONS: List of his inpatient medications was reviewed. No specific updates were made at this t fran. REVIEW OF SYSTEMS: General, head, ears, eyes, nose, throat, cardiovascular, respiratory, GI, , mus culoskeletal, neurologic and skin is negative except as mentioned in the HPI. PHYSICAL EXAMINATION: VITAL SIGNS: Afebrile with a T-max currently of 99.7 over the last 24 hours. Pulse 118, blood press ure 134/79, respirations 22, saturation 91% on 2 liters nasal cannula. GENERAL: The patient is awake and alert, in no apparent distress. He has diffuse, coarse tremor. HEENT: Normocephalic, atraumatic. Sclerae are white, conjunctivae pink. Oral mucosa is moist witho ut lesions. LUNGS: Decent air entry with rhonchi present. There is no prolonged expiratory phase. Dependent cr ackles are evident. HEART: Tachycardic. Regular. ABDOMEN: Soft, nontender, nondistended. Bowel sounds are positive. MUSCULOSKELETAL: No cyanosis or clubbing. There is trace to 1+ pitting in the bilateral lower extre mities. GENITOURINARY: No Pereira. NEUROLOGIC: Grossly nonfocal. LABORATORY DATA: WBC 0.1, hemoglobin 9.3, platelets 24,000. Basic metabolic profile is unremarkable except for potassium of 3.1. Urinalysis is unremarkable. Vancomycin 11.6, strep and legionella uri ne antigen is unremarkable. C. diff antigen and toxin is negative. Most recent blood cultures x2 ar e negative. There is one culture growing coag negative staph in two out of two on the tip of the pooja tral line. Influenza A and B was negative. A PICC line was previously growing Enterococcus faecalis which was resistant to vancomycin. ASSESSMENT: 1. Acute hypoxic respiratory failure. 2. Community-acquired pneumonia. 3. Pulmonary infiltrate. 4. Bacteremia secondary to Enterococcus faecium. 5. Gastroesophageal reflux disease. 6. Immunocompromised state. PLAN: We will proceed with bronchoscopy in the morning. I will make him n.p.o. after midnight. Onc e we collect the sample, hopefully we will be able to further clarify what infiltrate represents. Th e patient notes coughing whenever he is eating from time to time and occasionally will wake up with c oughing fits. He does have crud in the back of his throat. I do suspect that he may be having some aspiration related disease as the majority of the infiltrates are in the dependent regions of the brittany ateral lungs, although they happen to be more predominant on the left. If we do not find something t o direct our attention to, a swallow study may need to be considered.
[2017-08-29] MEDS: Aripiprazole 2 MG TAB PO SCH (21:14)
[2017-08-29] MEDS: Latanoprost 0.005% Ophth Soln 2.5 ml Bottle EA EYE SCH (21:16)
[2017-08-30] MEDS: Cefepime 2 GM, Syringe 2.5 ML in Sterile Water 10 ML SLOW IVP SCH ×2 (04:21→16:10)
[2017-08-30] MEDS: Levothyroxine Sodium 88 MCG TAB PO SCH (05:21)
[2017-08-30] MEDS ORDERED: SODIUM CHLORIDE 0.9% IVPB SCH (06:00)
[2017-08-30] MEDS ORDERED: VORICONAZOLE IVPB SCH (06:00)
[2017-08-30] MEDS: SODIUM CHLORIDE 0.9% IVPB SCH ×2 (07:33→18:29)
[2017-08-30] MEDS: VORICONAZOLE IVPB SCH ×2 (07:33→18:29)
[2017-08-30 08:11] LABS: Hematocrit 21.5 % (42.0-52.0); Mean Platelet Volume 11.4 fL (7.4-10.4); Red Blood Cell (RBC) Count 2.35 mill/uL (4.70-6.10); White Blood Cell (WBC) Count 0.1 thou/uL (4.8-10.8)
[2017-08-30] MEDS ORDERED: Dexamethasone 10 MG/ML VIAL SLOW IVP SCH (08:30)
[2017-08-30] MEDS ORDERED: diphenhydrAMINE 50 MG/ML VIAL IVP SCH (08:30)
--- NOTE | 2017-08-30 08:44 | PDOC.PN ---
- Subjective Encounter Start Date: 08/30/17 Encounter Start Time: 07:00 pt is weak, no headache, no fever, has cough, platelet is low, feels weak Patient seen and examined. No overnight events - Objective Resuscitation Status: Resuscitation Status FULL:Full Resuscitation MAR Reviewed: Yes Vital Signs & Weight: Vital Signs (12 hours) Temp Pulse Resp BP Pulse Ox 08/30/17 07:09 98 F 106 H 18 138/60 94 L 08/30/17 03:32 98.4 F 101 H 20 128/65 96 08/29/17 23:26 99.7 F H 108 H 20 146/64 H 99 Weight Admit Weight 171 lb 4.8 oz Weight 184 lb 4.8 oz I&O: 08/29/17 08/30/17 08/31/17 06:59 06:59 06:59 Intake Total 920 530 Output Total 450 850 Balance 470 -320 Result Diagrams: 08/30/17 07:30 08/28/17 04:15 Radiology Reviewed by me: Yes (chest xray) Phys Exam - Physical Examination Constitutional: NAD HEENT: PERRLA, moist MMs, sclera anicteric Neck: no JVD, supple Respiratory: no wheezing, no rhonchi few basal rales Cardiovascular: RRR, no significant murmur, no rub Gastrointestinal: soft, non-tender, no distention, positive bowel sounds Musculoskeletal: no edema, pulses present Neurological: non-focal, normal sensation, moves all 4 limbs Psychiatric: normal affect, A&O x 3 Skin: normal turgor Deviation from normal: petechie+ Dx/Plan (1) Sepsis associated with vascular access catheter Code(s): T82.7XXA - INFECT/INFLM REACT D/T OTH CARDI/VASC DEV/IMPLNT/GRFT, INIT ; A41.9 - SEPSIS, UNSPECIFIED ORGANISM Status: Acute (2) Bacteremia due to Enterococcus Code(s): R78.81 - BACTEREMIA; B95.2 - ENTEROCOCCUS THE CAUSE OF DISEASES CLASSIFIED ELSEWHERE Status: Acute (3) Multifocal pneumonia Code(s): J18.9 - PNEUMONIA, UNSPECIFIED ORGANISM Status: Acute (4) Neutropenic fever Code(s): D70.9 - NEUTROPENIA, UNSPECIFIED; R50.81 - FEVER PRESENTING WITH CONDITIONS CLASSIFIED ELSEWHERE Status: Acute (5) Sepsis with acute organ dysfunction Code(s): A41.9 - SEPSIS, UNSPECIFIED ORGANISM; R65.20 - SEVERE SEPSIS WITHOUT SEPTIC SHOCK Status: Acute (6) Thrombocytopenia Code(s): D69.6 - THROMBOCYTOPENIA, UNSPECIFIED Status: Acute (7) AML (acute myeloblastic leukemia) Code(s): C92.00 - ACUTE MYELOBLASTIC LEUKEMIA, NOT HAVING ACHIEVED REMISSION Status: Chronic (8) Cholelithiases Code(s): K80.20 - CALCULUS OF GALLBLADDER W/O CHOLECYSTITIS W/O OBSTRUCTION Status: Chronic Qualifiers: Cholelithiasis location: gallbladder (9) Dyslipidemia Code(s): E78.5 - HYPERLIPIDEMIA, UNSPECIFIED Status: Chronic (10) Hypothyroidism Code(s): E03.9 - HYPOTHYROIDISM, UNSPECIFIED Status: Chronic (11) Hypokalemia Code(s): E87.6 - HYPOKALEMIA Status: Acute - Plan cont current plan of care, continue antibiotics * currently on cefepime, levaquin, zyvox and voriconazole * today will transfuse 1 unit platelet * still pt has no improvement despite maximum medical treatment * as per pulmonary possible bronchoscopy today and may need speech evaluation * will check magnesium and phosphorus along with CBC , CMP tomorrow Review of Systems - Review of Systems Constitutional: Weakness, Malaise. negative: Fever, Chills, Sweats, Other ENT: negative: Ear Pain, Ear Discharge, Nose Pain, Nose Discharge, Nose Congestion, Mouth Pain, Mouth Swelling, Throat Pain, Throat Swelling, Other Respiratory: Cough, SOB with Excertion. negative: Dry, Shortness of Breath, Hemoptysis, Pleuritic Pain, Sputum, Wheezing Cardiovascular: negative: Chest Pain, Palpitations, Orthopnea, Paroxysmal Noc. Dyspnea, Edema, Light Headedness, Other Gastrointestinal: negative: Nausea, Vomiting, Abdominal Pain, Diarrhea, Constipation, Melena, Hematochezia, Other Genitourinary: negative: Dysuria, Frequency, Incontinence, Hematuria, Retention , Other Musculoskeletal: negative: Neck Pain, Shoulder Pain, Arm Pain, Back Pain, Hand Pain, Leg Pain, Foot Pain, Other Skin: negative: Rash, Lesions, Mason, Bruising, Other - Medications/Allergies Allergies/Adverse Reactions: Allergies Allergy/AdvReac Type Severity Reaction Status Date / Time No Known Allergies Allergy Unverified 12/27/16 11:21 Medications: Current Medications Acetaminophen (Tylenol) 650 mg PO Q4H PRN PRN Reason: Headache/Fever or Pain Acetaminophen/Codeine Phosphate (Tylenol #3) 1 tab PO Q6H PRN PRN Reason: Pain Last Admin: 08/29/17 11:30 Dose: 1 tab Hydrocodone Bitart/Acetaminophen ([place] 5/325) 1 tab PO Q4H PRN PRN Reason: Moderate Pain (4-6) Al Hydroxide/Mg Hydroxide (Maalox) 30 ml PO Q6H PRN PRN Reason: Heartburn or Indigestion Albuterol/Ipratropium (Duoneb) 3 ml NEB [id number] PRN PRN Reason: SOB &/or Wheezing Albuterol/Ipratropium (Duoneb) 3 ml NEB [facility] Alprazolam (Xanax) 0.5 mg PO HS PRN PRN Reason: Anxiety Last Admin: 08/28/17 14:50 Dose: 0.5 mg Aripiprazole (Abilify) 1 mg PO QPM [facility] Last Admin: 08/29/17 21:14 Dose: 1 mg Artificial Tears (Tears Naturale) 0 drop EA EYE PRN PRN PRN Reason: Dry Eyes Benzonatate (Tessalon) 100 mg PO Q4H PRN PRN Reason: Cough Last Admin: 08/29/17 19:09 Dose: 100 mg Dexamethasone (Decadron) 10 mg SLOW IVP ONE [facility] Stop: 08/30/17 15:00 Diphenhydramine HCl (Benadryl) 25 mg IVP WILLCALL [facility] Stop: 08/30/17 15:00 Fluvoxamine Maleate (Luvox) 100 mg PO HS [facility] Last Admin: 08/29/17 21:13 Dose: 100 mg Guaifenesin (Robitussin Sf) 200 mg PO Q4H PRN PRN Reason: Cough Last Admin: 08/27/17 21:09 Dose: 200 mg Guaifenesin (Mucinex) 600 mg PO Q12HR [facility] Last Admin: 08/29/17 21:13 Dose: 600 mg Hydralazine HCl (Apresoline) 10 mg SLOW IVP Q4H PRN PRN Reason: Systolic BP > 180 Hydrochlorothiazide (Hydrochlorothiazide) 12.5 mg PO DAILY [facility] Last Admin: 08/29/17 10:25 Dose: 12.5 mg Hyoscyamine Sulfate (Levsin) 0.125 mg PO Q4H PRN PRN Reason: GI Cramping Cefepime HCl 2 gm/ Syringe 2.5 (ml/ Sterile Water) 12.5 mls @ 150 mls/hr SLOW IVP 0300,1500 [facility] Last Admin: 08/30/17 04:21 Dose: 12.5 mls Levofloxacin 500 mg/ Device 100 mls @ 100 mls/hr IVPB Q24HR [facility] Last Admin: 08/30/17 05:24 Dose: 100 mls Voriconazole 360 mg/ Sodium (Chloride) 100 mls @ 50 mls/hr IVPB 0630,1830 [facility] Linezolid 600 mg/ Device 300 mls @ 150 mls/hr IVPB Q12HR [facility] Latanoprost (Xalatan 0.005% Ophth Soln) 1 drop EA EYE HS [facility] Last Admin: 08/29/17 21:16 Dose: 1 drp Levothyroxine Sodium (Synthroid) 88 mcg PO 0600 [facility] Last Admin: 08/30/17 05:21 Dose: Not Given Lidocaine HCl (Xylocaine 4% Pf) 5 ml NEB WILLCALL [facility] Loperamide HCl (Imodium) 2 mg PO ASDIR PRN PRN Reason: Diarrhea/Loose Stools Last Admin: 08/27/17 19:36 Dose: 2 mg Loratadine (Claritin) 10 mg PO DAILYPRN PRN PRN Reason: Sinus Symptoms Magnesium Hydroxide (Milk Of Magnesium) 30 ml PO DAILYPRN PRN PRN Reason: Constipation Mineral Oil/White Petrolatum (Eucerin Cream) 0 gm TOP BIDPRN PRN PRN Reason: Dry Skin Cresemba Oral 0 each PO DAILY [facility] Last Admin: 08/29/17 19:09 Dose: 1 each Ondansetron HCl (Zofran Odt) 4 mg PO Q6H PRN PRN Reason: Nausea/Vomiting Ondansetron HCl (Zofran) 4 mg IVP Q6H PRN PRN Reason: Nausea/Vomiting Pantoprazole Sodium (Protonix) 40 mg PO DAILY [facility] Last Admin: 08/29/17 10:22 Dose: 40 mg Phenol (Chloraseptic [place] 180 Ml Bot) 0 ml PO PRN PRN PRN Reason: Sore Throat Pilocarpine HCl (Isopto Carpine 1% Ophth Soln) 1 drop EA EYE BID [facility] Last Admin: 08/29/17 21:16 Dose: 1 drp Potassium Chloride (K-Dur) 20 meq PO QAM-WM [facility] Last Admin: 08/29/17 10:22 Dose: 20 meq Promethazine HCl (Phenergan) 25 mg PO Q8H PRN PRN Reason: Nausea Promethazine HCl/Codeine (Phenergan/Codeine Syrup) 5 ml PO Q4H PRN PRN Reason: Cough 2ND LINE Last Admin: 08/28/17 22:12 Dose: 5 ml Saccharomyces Boulardii (Florastor) 250 mg PO DAILY [facility] Last Admin: 08/29/17 10:22 Dose: 250 mg Senna (Senokot) 2 tab PO HSPRN PRN PRN Reason: Constipation Sodium Chloride ([place] Nasal [place] 0.65%) 0 ml EA NARE QIDPRN PRN PRN Reason: Nasal Congestion Sodium Chloride (Flush - Normal Saline) 10 ml IVF PRN PRN PRN Reason: Saline Flush Sodium Chloride (Flush - Normal Saline) 10 ml IV DAILY [facility] Last Admin: 08/29/17 10:25 Dose: 10 ml Valacyclovir HCl (Valtrex) 500 mg PO DAILY [facility] Last Admin: 08/29/17 10:25 Dose: 500 mg
[2017-08-30] MEDS: Potassium Chloride 20 MEQ TAB PO SCH (10:33)
[2017-08-30] MEDS: Hydrochlorothiazide 25 MG TAB PO SCH (10:34)
[2017-08-30] MEDS: CRESEMBA PO SCH (10:34)
[2017-08-30] MEDS: guaiFENesin ER 600 MG TAB PO SCH ×2 (10:34→21:27)
[2017-08-30] MEDS: Saccharomyces boulardii 250 MG CAP PO SCH (10:35)
[2017-08-30] MEDS: Linezolid 600 MG in Premix Bag 1 BAG IVPB SCH ×3 (10:54→21:27)
[2017-08-30] MEDS: Pilocarpine 1% Ophth Drops 15 ML BOT EA EYE SCH ×2 (10:55→21:28)
[2017-08-30] MEDS ORDERED: Midazolam HCl 2 mg/2 ml Vial ONE (11:38)
[2017-08-30] MEDS ORDERED: Succinylcholine Chloride 20 MG/ML 10 ml SYRINGE FS ONE (11:56)
[2017-08-30] MEDS ORDERED: Lidocaine 1% PF 5 ML VIAL ONE (11:56)
[2017-08-30] MEDS ORDERED: Propofol 200 MG/20 ML VIAL ONE (11:56)
[2017-08-30] MEDS ORDERED: Fentanyl 250 MCG/5 ML VIAL ONE (13:09)
[2017-08-30] MEDS ORDERED: Propofol 1,000 MG/100 ML VIAL IV ONE (13:27)
--- NOTE | 2017-08-30 14:40 | PRG ---
DATE OF SERVICE: 08/30/2017 SERVICE: Pulmonary Medicine. INTERVAL HISTORY: I saw the patient prior to bronchoscopy. He was breathing fairly comfortably. He continues to cough and has a significant rattle. Otherwise, there has been no interval change to hi s condition. PHYSICAL EXAMINATION: VITAL SIGNS: Currently afebrile with T-max overnight of 99.7. Pulse 106, blood pressure 132/57, res pirations 18, saturation 92% on room air. GENERAL: Patient is awake, alert, no apparent distress. LUNGS: Decent air entry. Rhonchi are present, but more predominant on the left. HEART: Tachycardic. Regular. ABDOMEN: Soft, nontender, nondistended, bowel sounds positive. MUSCULOSKELETAL: No cyanosis or clubbing. No pitting in the bilateral lower extremities. NEUROLOGIC: Grossly nonfocal. LABORATORY DATA: WBC 0.1. Hemoglobin 7.4. Platelets are 3000. He did get 6 packs of platelets thi s morning. Blood cultures x2, C. diff antigen and toxin are negative. ASSESSMENT: 1. Acute hypoxic respiratory failure. 2. Community-acquired pneumonia. 3. Pulmonary infiltrate. 4. Bacteremia secondary to Enterococcus faecium. 5. Gastroesophageal reflux disease. 6. Immunocompromised state. 7. Likely aspiration. PLAN: We will proceed with bronchoscopy. There has been no interval change to the patient's conditi on. He already got 6 packs of platelets. We will see how well he tolerates the brushing to determin e whether or not. We will proceed with transbronchial biopsy. Hopefully, this will help us to ident hussein the underlying etiology of this infiltrate and exclude the possibility of interstitial lung disea se associated with medication effect.
--- NOTE | 2017-08-30 15:11 | OP ---
DATE OF SERVICE: 08/30/2017 SERVICE: Pulmonary Medicine. PROCEDURE: Fiberoptic bronchoscopy with: 1. Visual airway inspection. 2. Endobronchial brush of the left lower lobe. 3. Bronchioalveolar lavage of the left lower lobe. 4. Transbronchial biopsies of the left lower lobe. PREPROCEDURE DIAGNOSES: 1. Pulmonary infiltrate. 2. Acute hypoxic respiratory failure. POSTPROCEDURE DIAGNOSES: 1. Pulmonary infiltrate. 2. Acute hypoxic respiratory failure. PROCEDURE CIGARETTE SELLER: Neil Harvey M.D. MEDICATIONS: For a list of medications used, please refer to anesthesia documentation. PREANESTHESIA ASSESSMENT: H and P had been performed. The patient's medications and allergies were reviewed. Informed consent was obtained after discussing risks, benefits, and rationale for performi ng procedure as well as alternative options. DESCRIPTION OF PROCEDURE: A timeout was performed, identifying correct patient and procedure with na me and date of . Diagnostic fiberoptic bronchoscope was introduced through the endotracheal tub e where a tracheobronchial tree inspection was carried out. There was clear identification of the ri ght upper lobe, right middle lobe, right lower lobe, left upper lobe, lingula, and left lower lobe. Anatomy was normal to the segmental level. Secretions were extraordinarily heavy and exudate of with out significant purulence. There was blood mixed up into the secretions. They were heavily lavaged and suctioned. Then, bronchoalveolar lavage was obtained from the posterior segment of the left lowe r lobe. Endobronchial brushings and transbronchial biopsies were also obtained from the left lower l obe, under fluoroscopic guidance. Hemostasis was verified and the bronchoscope was subsequently david shandra from the patient. Postprocedure fluoroscopy did not demonstrate a pneumothorax. FINDINGS: 1. Secretions were very thick, but minimal. They had an exudate of texture, but had little bit of blood mixed up into them. After clearing them, none of this same findings were coming from any of the lobes. 2. No endobronchial disease was identified. SPECIMENS OBTAINED: 1. Pathology on BAL, brush, transbronchial biopsy. 2. Microbiology on BAL. COMPLICATIONS: None. ESTIMATED BLOOD LOSS: 2 mL. FLUOROSCOPY TIME: Less than 3 minutes. DISPOSITION: The patient will transitioned back to his medical bed once he meets criteria [facility] the [facility].
[2017-08-30 15:39] LABS: BF Reference Range Comment Note:
[2017-08-30 16:58] LABS: BF Color Red; RBC Count-Automated 29000 /cumm
[2017-08-30 17:24] LABS: BF WBC/Nonhematics Ct. - Manua 10 /cumm
[2017-08-30 17:25] LABS: Number Cells Counted-Fluids 100
[2017-08-30] MEDS: Aripiprazole 2 MG TAB PO SCH (21:27)
[2017-08-30] MEDS: Latanoprost 0.005% Ophth Soln 2.5 ml Bottle EA EYE SCH (21:28)
[2017-08-31] MEDS: Cefepime 2 GM, Syringe 2.5 ML in Sterile Water 10 ML SLOW IVP SCH ×2 (02:37→13:58)
[2017-08-31] MEDS: Loperamide HCl 2 MG CAP PO PRN ×2 (04:01→23:11)
[2017-08-31 05:20] LABS: Hematocrit 21.4 % (42.0-52.0); Mean Platelet Volume 7.3 fL (7.4-10.4); Red Blood Cell (RBC) Count 2.31 mill/uL (4.70-6.10); White Blood Cell (WBC) Count 0.1 thou/uL (4.8-10.8)
[2017-08-31 05:21] LABS: ALT (SGPT) 29 U/L (8-55); AST (SGOT) 22 U/L (5-34); Alkaline Phosphatase 74 U/L (40-150); Anion Gap 12 mmol/L (10-20); BUN (Urea Nitrogen) 27 mg/dL (8.4-25.7); Bilirubin, Total 0.5 mg/dL (0.2-1.2); Calc. Creatinine Clearance 87 mL/min (70-130); Calcium 8.5 mg/dL (7.8-10.44); Carbon Dioxide 30 mmol/L (23-31); Chloride 96 mmol/L (98-107); Estimated GFR-MDRD 89; Globulin 2.6 g/dL (2.4-3.5); Magnesium 1.6 mg/dL (1.6-2.6); Phosphorus 3.1 mg/dL (2.3-4.7)
[2017-08-31] MEDS ORDERED: diphenhydrAMINE 50 MG/ML VIAL IVP PRN (05:43)
[2017-08-31] MEDS ORDERED: Dexamethasone 10 MG/ML VIAL SLOW IVP PRN (05:43)
[2017-08-31] MEDS ORDERED: Potassium Chloride 10 MEQ TAB PO SCH (05:45)
--- NOTE | 2017-08-31 05:46 | PDOC.PN ---
- Subjective Encounter Start Date: 08/31/17 Encounter Start Time: 06:00 Patient seen and examined. No new complaints. No overnight events, bronchoscopy done yesterday - Objective Resuscitation Status: Resuscitation Status FULL:Full Resuscitation MAR Reviewed: Yes Vital Signs & Weight: Vital Signs (12 hours) Temp Pulse Resp BP BP Pulse Ox 08/31/17 04:20 99 08/31/17 04:00 97.6 F 73 18 116/58 L 08/31/17 00:00 98 F 65 18 103/56 L 99 08/30/17 20:00 98 F 72 18 95/50 L 99 Weight Admit Weight 171 lb 4.8 oz Weight 184 lb 4.8 oz I&O: 08/29/17 08/30/17 08/31/17 06:59 06:59 06:59 Intake Total 920 530 200 Output Total 450 850 600 Balance 952 -693 -400 Result Diagrams: 08/31/17 04:30 08/31/17 04:30 Phys Exam - Physical Examination Constitutional: NAD HEENT: PERRLA, moist MMs, sclera anicteric Neck: no JVD, supple Respiratory: no wheezing, no rales, no rhonchi Cardiovascular: RRR, no significant murmur, no rub Gastrointestinal: soft, non-tender, no distention, positive bowel sounds Musculoskeletal: no edema, pulses present Neurological: non-focal, normal sensation Lymphatic: no nodes Psychiatric: normal affect, A&O x 3 Skin: no rash, normal turgor Dx/Plan (1) Sepsis associated with vascular access catheter Code(s): T82.7XXA - INFECT/INFLM REACT D/T OTH CARDI/VASC DEV/IMPLNT/GRFT, INIT ; A41.9 - SEPSIS, UNSPECIFIED ORGANISM Status: Acute (2) Bacteremia due to Enterococcus Code(s): R78.81 - BACTEREMIA; B95.2 - ENTEROCOCCUS THE CAUSE OF DISEASES CLASSIFIED ELSEWHERE Status: Acute (3) Multifocal pneumonia Code(s): J18.9 - PNEUMONIA, UNSPECIFIED ORGANISM Status: Acute (4) Neutropenic fever Code(s): D70.9 - NEUTROPENIA, UNSPECIFIED; R50.81 - FEVER PRESENTING WITH CONDITIONS CLASSIFIED ELSEWHERE Status: Acute (5) Sepsis with acute organ dysfunction Code(s): A41.9 - SEPSIS, UNSPECIFIED ORGANISM; R65.20 - SEVERE SEPSIS WITHOUT SEPTIC SHOCK Status: Acute (6) Thrombocytopenia Code(s): D69.6 - THROMBOCYTOPENIA, UNSPECIFIED Status: Acute (7) AML (acute myeloblastic leukemia) Code(s): C92.00 - ACUTE MYELOBLASTIC LEUKEMIA, NOT HAVING ACHIEVED REMISSION Status: Chronic (8) Cholelithiases Code(s): K80.20 - CALCULUS OF GALLBLADDER W/O CHOLECYSTITIS W/O OBSTRUCTION Status: Chronic Qualifiers: Cholelithiasis location: gallbladder (9) Dyslipidemia Code(s): E78.5 - HYPERLIPIDEMIA, UNSPECIFIED Status: Chronic (10) Hypothyroidism Code(s): E03.9 - HYPOTHYROIDISM, UNSPECIFIED Status: Chronic (11) Hypokalemia Code(s): E87.6 - HYPOKALEMIA Status: Acute - Plan cont current plan of care, continue antibiotics * today will transfuse 1 unit PRBC for low Hb * Premedication before transfusion as needed * will replace potassium chloride IV 40 meq * will replace magnesium sulfate 1gm * will repeat labs tomorrow * continue cefepime ,zyvox, levaquin, voriconazole * follow BAL culture * medication reviewed as below * symptomatic treatment. * case management manager consult * ID to finalize discharge meds if any IV as pt wanted to go home in next day or two Review of Systems - Review of Systems Constitutional: Weakness. negative: Fever, Chills, Sweats, Malaise, Other Eyes: negative: Pain, Vision Change, Conjunctivae Inflammation, Eyelid Inflammation, Redness, Other ENT: negative: Ear Pain, Ear Discharge, Nose Pain, Nose Discharge, Nose Congestion, Mouth Pain, Mouth Swelling, Throat Pain, Throat Swelling, Other Respiratory: Cough, SOB with Excertion. negative: Dry, Shortness of Breath, Hemoptysis, Pleuritic Pain, Sputum, Wheezing Cardiovascular: negative: Chest Pain, Palpitations, Orthopnea, Paroxysmal Noc. Dyspnea, Edema, Light Headedness, Other Gastrointestinal: negative: Nausea, Vomiting, Abdominal Pain, Diarrhea, Constipation, Melena, Hematochezia, Other Genitourinary: negative: Dysuria, Frequency, Incontinence, Hematuria, Retention , Other Musculoskeletal: negative: Neck Pain, Shoulder Pain, Arm Pain, Back Pain, Hand Pain, Leg Pain, Foot Pain, Other Skin: negative: Rash, Lesions, Mason, Bruising, Other - Medications/Allergies Allergies/Adverse Reactions: Allergies Allergy/AdvReac Type Severity Reaction Status Date / Time No Known Allergies Allergy Unverified 12/27/16 11:21 Medications: Current Medications Acetaminophen (Tylenol) 650 mg PO Q4H PRN PRN Reason: Headache/Fever or Pain Acetaminophen/Codeine Phosphate (Tylenol #3) 1 tab PO Q6H PRN PRN Reason: Pain Last Admin: 08/29/17 11:30 Dose: 1 tab Hydrocodone Bitart/Acetaminophen ([place] 5/325) 1 tab PO Q4H PRN PRN Reason: Moderate Pain (4-6) Al Hydroxide/Mg Hydroxide (Maalox) 30 ml PO Q6H PRN PRN Reason: Heartburn or Indigestion Albuterol/Ipratropium (Duoneb) 3 ml NEB [id number] PRN PRN Reason: SOB &/or Wheezing Albuterol/Ipratropium (Duoneb) 3 ml NEB [facility]CALL [facility] Alprazolam (Xanax) 0.5 mg PO HS PRN PRN Reason: Anxiety Last Admin: 08/28/17 14:50 Dose: 0.5 mg Aripiprazole (Abilify) 1 mg PO QPM [facility] Last Admin: 08/30/17 21:27 Dose: 1 mg Artificial Tears (Tears Naturale) 0 drop EA EYE PRN PRN PRN Reason: Dry Eyes Dexamethasone (Decadron) 10 mg SLOW IVP ASDIR PRN PRN Reason: for premed before transfusion Diphenhydramine HCl (Benadryl) 25 mg IVP Q6H PRN PRN Reason: Allergies Fluvoxamine Maleate (Luvox) 100 mg PO HS [facility] Last Admin: 08/30/17 21:27 Dose: 100 mg Guaifenesin (Robitussin Sf) 200 mg PO Q4H PRN PRN Reason: Cough Last Admin: 08/27/17 21:09 Dose: 200 mg Guaifenesin (Mucinex) 600 mg PO Q12HR [facility] Last Admin: 08/30/17 21:27 Dose: 600 mg Hydralazine HCl (Apresoline) 10 mg SLOW IVP Q4H PRN PRN Reason: Systolic BP > 180 Hydrochlorothiazide (Hydrochlorothiazide) 12.5 mg PO DAILY [facility] Last Admin: 08/30/17 10:34 Dose: Not Given Hyoscyamine Sulfate (Levsin) 0.125 mg PO Q4H PRN PRN Reason: GI Cramping Last Admin: 08/31/17 04:12 Dose: 0.125 mg Cefepime HCl 2 gm/ Syringe 2.5 (ml/ Sterile Water) 12.5 mls @ 150 mls/hr SLOW IVP 0300,1500 [facility] Last Admin: 08/31/17 02:37 Dose: 12.5 mls Levofloxacin 500 mg/ Device 100 mls @ 100 mls/hr IVPB Q24HR [facility] Last Admin: 08/30/17 05:24 Dose: 100 mls Voriconazole 360 mg/ Sodium (Chloride) 100 mls @ 50 mls/hr IVPB 0630,1830 [facility] Last Admin: 08/30/17 18:29 Dose: 100 mls Linezolid 600 mg/ Device 300 mls @ 150 mls/hr IVPB Q12HR [facility] Last Admin: 08/30/17 21:27 Dose: 300 mls Magnesium Sulfate 1 gm/ Sodium (Chloride) 102 mls @ 100 mls/hr IVPB ONE [facility] Latanoprost (Xalatan 0.005% Ophth Soln) 1 drop EA EYE HS [facility] Last Admin: 08/30/17 21:28 Dose: 1 drp Levothyroxine Sodium (Synthroid) 88 mcg PO 0600 [facility] Last Admin: 08/30/17 05:21 Dose: Not Given Lidocaine HCl (Xylocaine 4% Pf) 5 ml NEB WILLCALL [facility] Loperamide HCl (Imodium) 2 mg PO ASDIR PRN PRN Reason: Diarrhea/Loose Stools Last Admin: 08/31/17 04:01 Dose: 2 mg Loratadine (Claritin) 10 mg PO DAILYPRN PRN PRN Reason: Sinus Symptoms Magnesium Hydroxide (Milk Of Magnesium) 30 ml PO DAILYPRN PRN PRN Reason: Constipation Mineral Oil/White Petrolatum (Eucerin Cream) 0 gm TOP BIDPRN PRN PRN Reason: Dry Skin Cresemba Oral 0 each PO DAILY [facility] Last Admin: 08/30/17 10:34 Dose: Not Given Ondansetron HCl (Zofran Odt) 4 mg PO Q6H PRN PRN Reason: Nausea/Vomiting Ondansetron HCl (Zofran) 4 mg IVP Q6H PRN PRN Reason: Nausea/Vomiting Pantoprazole Sodium (Protonix) 40 mg PO DAILY [facility] Last Admin: 08/30/17 10:34 Dose: Not Given Phenol (Chloraseptic [place] 180 Ml Bot) 0 ml PO PRN PRN PRN Reason: Sore Throat Pilocarpine HCl (Isopto Carpine 1% Ophth Soln) 1 drop EA EYE BID [facility] Last Admin: 08/30/17 21:28 Dose: 1 drp Potassium Chloride (K-Dur) 20 meq PO QAM-WM [facility] Last Admin: 08/30/17 10:33 Dose: Not Given Potassium Chloride (Klor-Con 10) 40 meq PO ONE [facility] Promethazine HCl (Phenergan) 25 mg PO Q8H PRN PRN Reason: Nausea Promethazine HCl/Codeine (Phenergan/Codeine Syrup) 5 ml PO Q4H PRN PRN Reason: Cough 2ND LINE Last Admin: 08/28/17 22:12 Dose: 5 ml Saccharomyces Boulardii (Florastor) 250 mg PO DAILY [facility] Last Admin: 08/30/17 10:35 Dose: Not Given Senna (Senokot) 2 tab PO HSPRN PRN PRN Reason: Constipation Sodium Chloride ([place] Nasal [place] 0.65%) 0 ml EA NARE QIDPRN PRN PRN Reason: Nasal Congestion Sodium Chloride (Flush - Normal Saline) 10 ml IVF PRN PRN PRN Reason: Saline Flush Sodium Chloride (Flush - Normal Saline) 10 ml IV DAILY [facility] Last Admin: 08/30/17 10:57 Dose: 10 ml Valacyclovir HCl (Valtrex) 500 mg PO DAILY [facility] Last Admin: 08/30/17 10:35 Dose: Not Given
[2017-08-31] MEDS: Levothyroxine Sodium 88 MCG TAB PO SCH (05:53)
[2017-08-31] MEDS: VORICONAZOLE IVPB SCH ×2 (06:46→20:40)
[2017-08-31] MEDS: SODIUM CHLORIDE 0.9% IVPB SCH ×2 (06:46→20:40)
[2017-08-31] MEDS: Potassium Chloride 20 MEQ TAB PO SCH (09:23)
[2017-08-31] MEDS: guaiFENesin ER 600 MG TAB PO SCH ×2 (09:23→20:41)
[2017-08-31] MEDS: Hydrochlorothiazide 25 MG TAB PO SCH (09:26)
[2017-08-31] MEDS: Saccharomyces boulardii 250 MG CAP PO SCH (09:27)
[2017-08-31] MEDS: CRESEMBA PO SCH (10:07)
[2017-08-31] MEDS: Pilocarpine 1% Ophth Drops 15 ML BOT EA EYE SCH ×2 (10:08→20:41)
[2017-08-31] MEDS: Linezolid 600 MG in Premix Bag 1 BAG IVPB SCH ×2 (10:30→18:32)
--- NOTE | 2017-08-31 12:06 | PRG ---
DATE OF SERVICE: 08/31/2017 SUBJECTIVE: Feeling better. The patient had a bronchoscopy and samples are still pending, still wit h some diarrhea, but less; less cough, less sputum production. No chest pain, no abdominal pain, voi ding without difficulty. No neurological symptoms. PHYSICAL EXAMINATION: VITAL SIGNS: Temperature has normalized and his other vital signs are NORMAL. He is not tachycardic . O2 sat 98%. GENERAL: Awake, alert, oriented, chronically ill appearing. LUNGS: With clear breath sounds. HEART: S1, S2, regular rate. ABDOMEN: Soft, not distended. EXTREMITIES: Moves all extremities equally. LABORATORY DATA: We have the Aspergillus antigen which was negative and white cell count still at 0. 1 and not budging. The platelets are at 21,000, hemoglobin 7. Chemistry with a creatinine of 0.84, potassium 2.9. ASSESSMENT AND DISCUSSION: Acute myeloid leukemia with myelodysplastic syndrome, following chronic c ourse of chronic lymphocytic leukemia treatment, now with severe neutropenia persistence of following many days of treatment and after cytarabine plus Venclexta treatment. It seems like he has improved after switching to Zyvox from daptomycin. Potentially to be discharged in 2 days approximately, we will continue monitoring the results of all the assays and cultures submitted from the various sample s obtained during this hospital stay. Potential discharge regimen would include oral Cresemba which the patient has at home plus oral Zyvox, quinolone such as levofloxacin and Valtrex.
--- NOTE | 2017-08-31 15:38 | PRG ---
DATE OF SERVICE: 08/31/2017 SERVICE: Pulmonary Medicine. INTERVAL HISTORY: The patient is doing great from a respiratory standpoint. He is not coughing up a ny blood. He continues to have a rattle in his chest, but otherwise, he denies any current fevers, c hills, nausea, vomiting or overnight events. PHYSICAL EXAMINATION: VITAL SIGNS: Afebrile, pulse 75, blood pressure 103/52, respirations 20, saturation 96% on room air. GENERAL: Patient is awake and alert, in no apparent distress. LUNGS: Good air entry bilaterally. There is no prolonged expiratory phase. Rhonchi are little bett er today. HEART: Normal rate, regular. ABDOMEN: Soft, nontender, nondistended. Bowel sounds positive. MUSCULOSKELETAL: No cyanosis or clubbing. No pitting in the bilateral lower extremities. NEUROLOGIC: Grossly nonfocal. LABORATORY DATA: WBC 0.1, hemoglobin 7.0, platelets 21,000. Potassium 2.9. Basic metabolic profile is otherwise unremarkable. Liver function studies are normal. The BAL fluid is lymphocyte predomin ant fluid. Pathology is currently pending. Strep and legionella urinary antigens are unremarkable. Multiple miscellaneous studies are pending on the BAL. Respiratory cultures negative to date. Blood cultures x2, C. diff are negative to date. ASSESSMENT: 1. Acute hypoxic respiratory failure. 2. Community-acquired pneumonia. 3. Pulmonary infiltrate. 4. Bacteremia secondary to Enterococcus faecium. 5. Gastroesophageal reflux disease. 6. Immunocompromised state. 7. Aspiration, suspected. 8. Rhinitis secondary to likely allergic and nonallergic causes. PLAN: We are awaiting many of the results from the bronchoscopy. Otherwise, supportive measures samara l be continued per Oncology and primary direction. I truthfully believe that much of the infiltrate that we see is aspiration related. He gets a very strong history of difficulty with swallowing and r eflux related diseases that wake him up at night. We talked about some different precautions to limi t this. Either way, oral secretions can certainly have macy in it that he would be susceptible deve loping an infection from. I will continue to follow for the time being.
[2017-08-31] MEDS: Aripiprazole 2 MG TAB PO SCH (20:41)
[2017-08-31] MEDS: Latanoprost 0.005% Ophth Soln 2.5 ml Bottle EA EYE SCH (20:41)
[2017-08-31] MEDS: Mag-Al 1200 mg/1200 mg/30 ML UDCUP PO PRN (21:00)
[2017-09-01] MEDS: Cefepime 2 GM, Syringe 2.5 ML in Sterile Water 10 ML SLOW IVP SCH ×2 (02:33→15:30)
[2017-09-01] MEDS: Levothyroxine Sodium 88 MCG TAB PO SCH (05:12)
[2017-09-01] MEDS: Loperamide HCl 2 MG CAP PO PRN (06:06)
[2017-09-01] MEDS: SODIUM CHLORIDE 0.9% IVPB SCH ×2 (06:06→18:56)
[2017-09-01] MEDS: VORICONAZOLE IVPB SCH ×2 (06:06→18:56)
[2017-09-01 06:25] LABS: Anion Gap 11 mmol/L (10-20); BUN (Urea Nitrogen) 30 mg/dL (8.4-25.7); Calc. Creatinine Clearance 91 mL/min (70-130); Calcium 8.7 mg/dL (7.8-10.44); Carbon Dioxide 32 mmol/L (23-31); Chloride 97 mmol/L (98-107); Estimated GFR-MDRD Greater than 90
[2017-09-01 06:33] LABS: Hematocrit 28.9 % (42.0-52.0); Mean Platelet Volume 8.4 fL (7.4-10.4); Red Blood Cell (RBC) Count 3.19 mill/uL (4.70-6.10); White Blood Cell (WBC) Count 0.2 thou/uL (4.8-10.8)
[2017-09-01] MEDS ORDERED: Hydrocortisone Acetate 25 MG Suppository PR PRN (06:46)
[2017-09-01] MEDS: Hydrochlorothiazide 25 MG TAB PO SCH (08:25)
[2017-09-01] MEDS: Saccharomyces boulardii 250 MG CAP PO SCH (08:26)
[2017-09-01] MEDS: Potassium Chloride 20 MEQ TAB PO SCH (08:26)
[2017-09-01] MEDS: guaiFENesin ER 600 MG TAB PO SCH ×2 (08:26→21:08)
[2017-09-01] MEDS: Pilocarpine 1% Ophth Drops 15 ML BOT EA EYE SCH ×2 (08:27→21:26)
[2017-09-01] MEDS: Linezolid 600 MG in Premix Bag 1 BAG IVPB SCH ×2 (09:17→21:36)
[2017-09-01] MEDS: Diphenoxylate HCl/Atropine Tablet PO PRN ×2 (12:01→19:28)
[2017-09-01] MEDS: CRESEMBA PO SCH (12:03)
--- NOTE | 2017-09-01 12:35 | PDOC.PN ---
- Subjective Encounter Start Date: 09/01/17 Encounter Start Time: 07:00 pt feels weak, he feels that he is not ready to go home and now he prefers to go to rehab, no fever - Objective Resuscitation Status: Resuscitation Status FULL:Full Resuscitation MAR Reviewed: Yes Vital Signs & Weight: Vital Signs (12 hours) Temp Pulse Resp BP Pulse Ox 09/01/17 12:00 97.8 F 85 17 117/65 97 09/01/17 08:00 98.0 F 77 19 99 09/01/17 07:48 98.0 F 77 19 125/65 99 Weight Admit Weight 171 lb 4.8 oz Weight 184 lb 4.8 oz I&O: 08/31/17 09/01/17 09/02/17 06:59 06:59 06:59 Intake Total 980 2190 Output Total 900 3 Balance 80 2187 Result Diagrams: 09/01/17 05:30 09/01/17 05:30 Phys Exam - Physical Examination Constitutional: NAD HEENT: PERRLA, moist MMs, sclera anicteric Neck: no JVD, supple Respiratory: no wheezing, no rales, no rhonchi Cardiovascular: RRR, no significant murmur, no rub Gastrointestinal: soft, non-tender, no distention, positive bowel sounds Musculoskeletal: no edema, pulses present Neurological: non-focal, normal sensation Lymphatic: no nodes Psychiatric: normal affect Skin: no rash, normal turgor Dx/Plan (1) Sepsis associated with vascular access catheter Code(s): T82.7XXA - INFECT/INFLM REACT D/T OTH CARDI/VASC DEV/IMPLNT/GRFT, INIT ; A41.9 - SEPSIS, UNSPECIFIED ORGANISM Status: Acute (2) Bacteremia due to Enterococcus Code(s): R78.81 - BACTEREMIA; B95.2 - ENTEROCOCCUS THE CAUSE OF DISEASES CLASSIFIED ELSEWHERE Status: Acute (3) Multifocal pneumonia Code(s): J18.9 - PNEUMONIA, UNSPECIFIED ORGANISM Status: Acute (4) Neutropenic fever Code(s): D70.9 - NEUTROPENIA, UNSPECIFIED; R50.81 - FEVER PRESENTING WITH CONDITIONS CLASSIFIED ELSEWHERE Status: Acute (5) Sepsis with acute organ dysfunction Code(s): A41.9 - SEPSIS, UNSPECIFIED ORGANISM; R65.20 - SEVERE SEPSIS WITHOUT SEPTIC SHOCK Status: Acute (6) Thrombocytopenia Code(s): D69.6 - THROMBOCYTOPENIA, UNSPECIFIED Status: Acute (7) AML (acute myeloblastic leukemia) Code(s): C92.00 - ACUTE MYELOBLASTIC LEUKEMIA, NOT HAVING ACHIEVED REMISSION Status: Chronic (8) Cholelithiases Code(s): K80.20 - CALCULUS OF GALLBLADDER W/O CHOLECYSTITIS W/O OBSTRUCTION Status: Chronic Qualifiers: Cholelithiasis location: gallbladder (9) Dyslipidemia Code(s): E78.5 - HYPERLIPIDEMIA, UNSPECIFIED Status: Chronic (10) Hypothyroidism Code(s): E03.9 - HYPOTHYROIDISM, UNSPECIFIED Status: Chronic (11) Hypokalemia Code(s): E87.6 - HYPOKALEMIA Status: Acute - Plan cont current plan of care, plan discussed w/ family, 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 Review of Systems - Review of Systems Constitutional: Weakness, Malaise. negative: Fever, Chills, Sweats, Other ENT: negative: Ear Pain, Ear Discharge, Nose Pain, Nose Discharge, Nose Congestion, Mouth Pain, Mouth Swelling, Throat Pain, Throat Swelling, Other Respiratory: negative: Cough, Dry, Shortness of Breath, Hemoptysis, SOB with Excertion, Pleuritic Pain, Sputum, Wheezing Cardiovascular: negative: Chest Pain, Palpitations, Orthopnea, Paroxysmal Noc. Dyspnea, Edema, Light Headedness, Other Gastrointestinal: negative: Nausea, Vomiting, Abdominal Pain, Diarrhea, Constipation, Melena, Hematochezia, Other Genitourinary: negative: Dysuria, Frequency, Incontinence, Hematuria, Retention , Other Musculoskeletal: negative: Neck Pain, Shoulder Pain, Arm Pain, Back Pain, Hand Pain, Leg Pain, Foot Pain, Other Skin: negative: Rash, Lesions, Mason, Bruising, Other - Medications/Allergies Allergies/Adverse Reactions: Allergies Allergy/AdvReac Type Severity Reaction Status Date / Time No Known Allergies Allergy Unverified 04/07/17 11:21 Medications: Current Medications Acetaminophen (Tylenol) 650 mg PO Q4H PRN PRN Reason: Headache/Fever or Pain Acetaminophen/Codeine Phosphate (Tylenol #3) 1 tab PO Q6H PRN PRN Reason: Pain Last Admin: 08/29/17 11:30 Dose: 1 tab Hydrocodone Bitart/Acetaminophen ([place] 5/325) 1 tab PO Q4H PRN PRN Reason: Moderate Pain (4-6) Al Hydroxide/Mg Hydroxide (Maalox) 30 ml PO Q6H PRN PRN Reason: Heartburn or Indigestion Last Admin: 08/31/17 21:00 Dose: 30 ml Albuterol/Ipratropium (Duoneb) 3 ml NEB [id number] PRN PRN Reason: SOB &/or Wheezing Albuterol/Ipratropium (Duoneb) 3 ml NEB WILLCALL IVÁN Alprazolam (Xanax) 0.5 mg PO HS PRN PRN Reason: Anxiety Last Admin: 08/28/17 14:50 Dose: 0.5 mg Aripiprazole (Abilify) 1 mg PO QPM IVÁN Last Admin: 08/31/17 20:41 Dose: 1 mg Artificial Tears (Tears Naturale) 0 drop EA EYE PRN PRN PRN Reason: Dry Eyes Dexamethasone (Decadron) 10 mg SLOW IVP ASDIR PRN PRN Reason: for premed before transfusion Last Admin: 08/31/17 10:04 Dose: 10 mg Diphenhydramine HCl (Benadryl) 25 mg IVP Q6H PRN PRN Reason: Allergies Diphenoxylate HCl/Atropine (Lomotil) 1 tab PO Q6H PRN PRN Reason: Diarrhea/Loose Stools Last Admin: 09/01/17 12:01 Dose: 1 tab Fluvoxamine Maleate (Luvox) 100 mg PO HS IVÁN Last Admin: 08/31/17 20:41 Dose: 100 mg Guaifenesin (Robitussin Sf) 200 mg PO Q4H PRN PRN Reason: Cough Last Admin: 08/27/17 21:09 Dose: 200 mg Guaifenesin (Mucinex) 600 mg PO Q12HR IVÁN Last Admin: 09/01/17 08:26 Dose: 600 mg Hydralazine HCl (Apresoline) 10 mg SLOW IVP Q4H PRN PRN Reason: Systolic BP > 180 Hydrochlorothiazide (Hydrochlorothiazide) 12.5 mg PO DAILY [facility] Last Admin: 09/01/17 08:25 Dose: 12.5 mg Hydrocortisone Acetate (Anusol-Hc) 25 mg SD BID PRN PRN Reason: Hemorrhoids Hyoscyamine Sulfate (Levsin) 0.125 mg PO Q4H PRN PRN Reason: GI Cramping Last Admin: 08/31/17 23:18 Dose: 0.125 mg Cefepime HCl 2 gm/ Syringe 2.5 (ml/ Sterile Water) 12.5 mls @ 150 mls/hr SLOW IVP 0300,1500 [facility] Last Admin: 09/01/17 02:33 Dose: 12.5 mls Levofloxacin 500 mg/ Device 100 mls @ 100 mls/hr IVPB Q24HR [facility] Last Admin: 09/01/17 05:11 Dose: 100 mls Voriconazole 360 mg/ Sodium (Chloride) 100 mls @ 50 mls/hr IVPB 0630,1830 [facility] Last Admin: 09/01/17 06:06 Dose: 100 mls Linezolid 600 mg/ Device 300 mls @ 150 mls/hr IVPB Q12HR [facility] Last Admin: 09/01/17 09:17 Dose: 300 mls Latanoprost (Xalatan 0.005% Ophth Soln) 1 drop EA EYE HS [facility] Last Admin: 08/31/17 20:41 Dose: 1 drp Levothyroxine Sodium (Synthroid) 88 mcg PO 0600 [facility] Last Admin: 09/01/17 05:12 Dose: 88 mcg Lidocaine HCl (Xylocaine 4% Pf) 5 ml NEB WILLCALL [facility] Loperamide HCl (Imodium) 2 mg PO ASDIR PRN PRN Reason: Diarrhea/Loose Stools Last Admin: 09/01/17 06:06 Dose: 2 mg Loratadine (Claritin) 10 mg PO DAILYPRN PRN PRN Reason: Sinus Symptoms Magnesium Hydroxide (Milk Of Magnesium) 30 ml PO DAILYPRN PRN PRN Reason: Constipation Mineral Oil/White Petrolatum (Eucerin Cream) 0 gm TOP BIDPRN PRN PRN Reason: Dry Skin Cresemba Oral 0 each PO DAILY [facility] Last Admin: 09/01/17 12:03 Dose: Not Given Ondansetron HCl (Zofran Odt) 4 mg PO Q6H PRN PRN Reason: Nausea/Vomiting Ondansetron HCl (Zofran) 4 mg IVP Q6H PRN PRN Reason: Nausea/Vomiting Pantoprazole Sodium (Protonix) 40 mg PO DAILY [facility] Last Admin: 09/01/17 08:24 Dose: 40 mg Phenol (Chloraseptic [place] 180 Ml Bot) 0 ml PO PRN PRN PRN Reason: Sore Throat Pilocarpine HCl (Isopto Carpine 1% Ophth Soln) 1 drop EA EYE BID [facility] Last Admin: 09/01/17 08:27 Dose: 1 drp Potassium Chloride (K-Dur) 20 meq PO QAM-WM [facility] Last Admin: 09/01/17 08:26 Dose: 20 meq Promethazine HCl (Phenergan) 25 mg PO Q8H PRN PRN Reason: Nausea Promethazine HCl/Codeine (Phenergan/Codeine Syrup) 5 ml PO Q4H PRN PRN Reason: Cough 2ND LINE Last Admin: 08/28/17 22:12 Dose: 5 ml Saccharomyces Boulardii (Florastor) 250 mg PO DAILY [facility] Last Admin: 09/01/17 08:26 Dose: 250 mg Senna (Senokot) 2 tab PO HSPRN PRN PRN Reason: Constipation Sodium Chloride ([place] Nasal [place] 0.65%) 0 ml EA NARE QIDPRN PRN PRN Reason: Nasal Congestion Sodium Chloride (Flush - Normal Saline) 10 ml IVF PRN PRN PRN Reason: Saline Flush Sodium Chloride (Flush - Normal Saline) 10 ml IV DAILY [facility] Last Admin: 09/01/17 08:31 Dose: 10 ml Valacyclovir HCl (Valtrex) 500 mg PO DAILY [facility] Last Admin: 09/01/17 08:26 Dose: 500 mg
[2017-09-01] MEDS: Aripiprazole 2 MG TAB PO SCH (21:07)
[2017-09-01] MEDS: Latanoprost 0.005% Ophth Soln 2.5 ml Bottle EA EYE SCH (21:26)
[2017-09-01] MEDS: Mag-Al 1200 mg/1200 mg/30 ML UDCUP PO PRN (21:36)
[2017-09-02] MEDS: Acetaminophen 325 MG TAB PO PRN ×2 (02:23→20:25)
[2017-09-02] MEDS: Cefepime 2 GM, Syringe 2.5 ML in Sterile Water 10 ML SLOW IVP SCH ×2 (02:29→15:46)
[2017-09-02] MEDS: Levothyroxine Sodium 88 MCG TAB PO SCH (05:30)
[2017-09-02] MEDS: VORICONAZOLE IVPB SCH ×2 (06:42→18:38)
[2017-09-02] MEDS: SODIUM CHLORIDE 0.9% IVPB SCH ×2 (06:42→18:38)
[2017-09-02] MEDS: Hydrochlorothiazide 25 MG TAB PO SCH (09:06)
[2017-09-02] MEDS: Potassium Chloride 20 MEQ TAB PO SCH (09:07)
[2017-09-02] MEDS: Saccharomyces boulardii 250 MG CAP PO SCH (09:07)
[2017-09-02] MEDS: guaiFENesin ER 600 MG TAB PO SCH ×2 (09:07→20:27)
[2017-09-02] MEDS: Pilocarpine 1% Ophth Drops 15 ML BOT EA EYE SCH ×2 (09:07→20:25)
[2017-09-02 09:21] LABS: Hematocrit 25.2 % (42.0-52.0); Red Blood Cell (RBC) Count 2.78 mill/uL (4.70-6.10); White Blood Cell (WBC) Count 0.2 thou/uL (4.8-10.8)
[2017-09-02 09:42] LABS: Polychromasia SLIGHT = 2-3 cells (100X) (0-2/hpf)
[2017-09-02] MEDS: Linezolid 600 MG in Premix Bag 1 BAG IVPB SCH ×2 (10:12→20:31)
--- NOTE | 2017-09-02 10:12 | PDOC.PN ---
- Subjective Encounter Start Date: 09/02/17 Encounter Start Time: 07:00 at this point main issue of patient is his weakness, still has cough, but better , no fever - Objective Resuscitation Status: Resuscitation Status FULL:Full Resuscitation MAR Reviewed: Yes Vital Signs & Weight: Vital Signs (12 hours) Temp Pulse Resp BP BP Pulse Ox 09/02/17 07:50 98.5 F 92 16 111/55 L 92 L 09/02/17 05:28 95 09/02/17 03:42 98.8 F 09/02/17 02:23 99.8 F H 101 H 21 H 132/60 92 L 09/02/17 00:00 99.2 F 108 H 20 114/55 L 91 L Weight Admit Weight 171 lb 4.8 oz Weight 184 lb 4.8 oz I&O: 09/01/17 09/02/17 09/03/17 06:59 06:59 06:59 Intake Total 2190 1802 Output Total 3 125 Balance 2187 1677 Result Diagrams: 09/02/17 08:59 09/01/17 05:30 Phys Exam - Physical Examination Constitutional: NAD HEENT: PERRLA, moist MMs, sclera anicteric Neck: no JVD, supple Respiratory: no wheezing, no rhonchi few scattered rales Cardiovascular: RRR, no significant murmur, no rub Gastrointestinal: soft, non-tender, no distention, positive bowel sounds Musculoskeletal: no edema, pulses present Neurological: non-focal, normal sensation, moves all 4 limbs Lymphatic: no nodes Psychiatric: normal affect, A&O x 3 Skin: no rash, normal turgor Dx/Plan (1) Sepsis associated with vascular access catheter Code(s): T82.7XXA - INFECT/INFLM REACT D/T OTH CARDI/VASC DEV/IMPLNT/GRFT, INIT ; A41.9 - SEPSIS, UNSPECIFIED ORGANISM Status: Acute (2) Bacteremia due to Enterococcus Code(s): R78.81 - BACTEREMIA; B95.2 - ENTEROCOCCUS THE CAUSE OF DISEASES CLASSIFIED ELSEWHERE Status: Acute (3) Multifocal pneumonia Code(s): J18.9 - PNEUMONIA, UNSPECIFIED ORGANISM Status: Acute (4) Neutropenic fever Code(s): D70.9 - NEUTROPENIA, UNSPECIFIED; R50.81 - FEVER PRESENTING WITH CONDITIONS CLASSIFIED ELSEWHERE Status: Acute (5) Sepsis with acute organ dysfunction Code(s): A41.9 - SEPSIS, UNSPECIFIED ORGANISM; R65.20 - SEVERE SEPSIS WITHOUT SEPTIC SHOCK Status: Acute (6) Thrombocytopenia Code(s): D69.6 - THROMBOCYTOPENIA, UNSPECIFIED Status: Acute (7) AML (acute myeloblastic leukemia) Code(s): C92.00 - ACUTE MYELOBLASTIC LEUKEMIA, NOT HAVING ACHIEVED REMISSION Status: Chronic (8) Cholelithiases Code(s): K80.20 - CALCULUS OF GALLBLADDER W/O CHOLECYSTITIS W/O OBSTRUCTION Status: Chronic Qualifiers: Cholelithiasis location: gallbladder (9) Dyslipidemia Code(s): E78.5 - HYPERLIPIDEMIA, UNSPECIFIED Status: Chronic (10) Hypothyroidism Code(s): E03.9 - HYPOTHYROIDISM, UNSPECIFIED Status: Chronic (11) Hypokalemia Code(s): E87.6 - HYPOKALEMIA Status: Acute - Plan cont current plan of care, 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 * continue zyvox, levaquin, voriconazole and cefepime, valtrex * medication reviewed as below * symptomatic treatment * rehab decision pending Review of Systems - Review of Systems Constitutional: Weakness, Malaise. negative: Fever, Chills, Sweats, Other ENT: negative: Ear Pain, Ear Discharge, Nose Pain, Nose Discharge, Nose Congestion, Mouth Pain, Mouth Swelling, Throat Pain, Throat Swelling, Other Respiratory: Cough. negative: Dry, Shortness of Breath, Hemoptysis, SOB with Excertion, Pleuritic Pain, Sputum, Wheezing Cardiovascular: negative: Chest Pain, Palpitations, Orthopnea, Paroxysmal Noc. Dyspnea, Edema, Light Headedness, Other Gastrointestinal: negative: Nausea, Vomiting, Abdominal Pain, Diarrhea, Constipation, Melena, Hematochezia, Other Genitourinary: negative: Dysuria, Frequency, Incontinence, Hematuria, Retention , Other Musculoskeletal: negative: Neck Pain, Shoulder Pain, Arm Pain, Back Pain, Hand Pain, Leg Pain, Foot Pain, Other Skin: negative: Rash, Lesions, Mason, Bruising, Other - Medications/Allergies Allergies/Adverse Reactions: Allergies Allergy/AdvReac Type Severity Reaction Status Date / Time No Known Allergies Allergy Unverified 12/27/16 11:21 Medications: Current Medications Acetaminophen (Tylenol) 650 mg PO Q4H PRN PRN Reason: Headache/Fever or Pain Last Admin: 09/02/17 02:23 Dose: 650 mg Acetaminophen/Codeine Phosphate (Tylenol #3) 1 tab PO Q6H PRN PRN Reason: Moderate Pain (4-6) Last Admin: 08/29/17 11:30 Dose: 1 tab Hydrocodone Bitart/Acetaminophen ([place] 5/325) 1 tab PO Q4H PRN PRN Reason: Moderate Pain (4-6) Al Hydroxide/Mg Hydroxide (Maalox) 30 ml PO Q6H PRN PRN Reason: Heartburn or Indigestion Last Admin: 09/01/17 21:36 Dose: 30 ml Albuterol/Ipratropium (Duoneb) 3 ml NEB [id number] PRN PRN Reason: SOB &/or Wheezing Albuterol/Ipratropium (Duoneb) 3 ml NEB WILLCALL IVÁN Alprazolam (Xanax) 0.5 mg PO HS PRN PRN Reason: Anxiety Last Admin: 08/28/17 14:50 Dose: 0.5 mg Aripiprazole (Abilify) 1 mg PO QPM IVÁN Last Admin: 09/01/17 21:07 Dose: 1 mg Artificial Tears (Tears Naturale) 0 drop EA EYE PRN PRN PRN Reason: Dry Eyes Dexamethasone (Decadron) 10 mg SLOW IVP ASDIR PRN PRN Reason: for premed before transfusion Last Admin: 08/31/17 10:04 Dose: 10 mg Diphenhydramine HCl (Benadryl) 25 mg IVP Q6H PRN PRN Reason: Allergies Diphenoxylate HCl/Atropine (Lomotil) 1 tab PO Q6H PRN PRN Reason: Diarrhea/Loose Stools Last Admin: 09/01/17 19:28 Dose: 1 tab Fluvoxamine Maleate (Luvox) 100 mg PO HS IVÁN Last Admin: 09/01/17 21:07 Dose: 100 mg Guaifenesin (Robitussin Sf) 200 mg PO Q4H PRN PRN Reason: Cough Last Admin: 08/27/17 21:09 Dose: 200 mg Guaifenesin (Mucinex) 600 mg PO Q12HR IVÁN Last Admin: 09/02/17 09:07 Dose: 600 mg Hydralazine HCl (Apresoline) 10 mg SLOW IVP Q4H PRN PRN Reason: Systolic BP > 180 Hydrochlorothiazide (Hydrochlorothiazide) 12.5 mg PO DAILY [facility] Last Admin: 09/02/17 09:06 Dose: 12.5 mg Hydrocortisone Acetate (Anusol-Hc) 25 mg [place] BID PRN PRN Reason: Hemorrhoids Hyoscyamine Sulfate (Levsin) 0.125 mg PO Q4H PRN PRN Reason: GI Cramping Last Admin: 08/31/17 23:18 Dose: 0.125 mg Cefepime HCl 2 gm/ Syringe 2.5 (ml/ Sterile Water) 12.5 mls @ 150 mls/hr SLOW IVP 0300,1500 [facility] Last Admin: 09/02/17 02:29 Dose: 12.5 mls Levofloxacin 500 mg/ Device 100 mls @ 100 mls/hr IVPB Q24HR [facility] Last Admin: 09/02/17 05:30 Dose: 100 mls Voriconazole 360 mg/ Sodium (Chloride) 100 mls @ 50 mls/hr IVPB 0630,1830 [facility] Last Admin: 09/02/17 06:42 Dose: 100 mls Linezolid 600 mg/ Device 300 mls @ 150 mls/hr IVPB Q12HR [facility] Last Admin: 09/02/17 10:12 Dose: 300 mls Latanoprost (Xalatan 0.005% Ophth Soln) 1 drop EA EYE HS [facility] Last Admin: 09/01/17 21:26 Dose: 1 drp Levothyroxine Sodium (Synthroid) 88 mcg PO 0600 [facility] Last Admin: 09/02/17 05:30 Dose: 88 mcg Lidocaine HCl (Xylocaine 4% Pf) 5 ml NEB WILLCALL [facility] Loperamide HCl (Imodium) 2 mg PO ASDIR PRN PRN Reason: Diarrhea/Loose Stools Last Admin: 09/01/17 06:06 Dose: 2 mg Loratadine (Claritin) 10 mg PO DAILYPRN PRN PRN Reason: Sinus Symptoms Magnesium Hydroxide (Milk Of Magnesium) 30 ml PO DAILYPRN PRN PRN Reason: Constipation Mineral Oil/White Petrolatum (Eucerin Cream) 0 gm TOP BIDPRN PRN PRN Reason: Dry Skin Cresemba Oral 0 each PO DAILY [facility] Last Admin: 09/01/17 12:03 Dose: Not Given Ondansetron HCl (Zofran Odt) 4 mg PO Q6H PRN PRN Reason: Nausea/Vomiting Ondansetron HCl (Zofran) 4 mg IVP Q6H PRN PRN Reason: Nausea/Vomiting Last Admin: 09/02/17 10:12 Dose: 4 mg Pantoprazole Sodium (Protonix) 40 mg PO DAILY [facility] Last Admin: 09/02/17 09:07 Dose: 40 mg Phenol (Chloraseptic [place] 180 Ml Bot) 0 ml PO PRN PRN PRN Reason: Sore Throat Pilocarpine HCl (Isopto Carpine 1% Oph Sol) 1 drop EA EYE BID [facility] Last Admin: 09/02/17 09:07 Dose: 1 drp Potassium Chloride (K-Dur) 20 meq PO QAM-WM [facility] Last Admin: 09/02/17 09:07 Dose: 20 meq Promethazine HCl (Phenergan) 25 mg PO Q8H PRN PRN Reason: Nausea Promethazine HCl/Codeine (Phenergan/Codeine Syrup) 5 ml PO Q4H PRN PRN Reason: Cough 2ND LINE Last Admin: 08/28/17 22:12 Dose: 5 ml Saccharomyces Boulardii (Florastor) 250 mg PO DAILY [facility] Last Admin: 09/02/17 09:07 Dose: 250 mg Senna (Senokot) 2 tab PO HSPRN PRN PRN Reason: Constipation Sodium Chloride ([place] Nasal [place] 0.65%) 0 ml EA NARE QIDPRN PRN PRN Reason: Nasal Congestion Sodium Chloride (Flush - Normal Saline) 10 ml IVF PRN PRN PRN Reason: Saline Flush Sodium Chloride (Flush - Normal Saline) 10 ml IV DAILY [facility] Last Admin: 09/02/17 09:07 Dose: 10 ml Valacyclovir HCl (Valtrex) 500 mg PO DAILY [facility] Last Admin: 09/02/17 09:07 Dose: 500 mg
[2017-09-02] MEDS: CRESEMBA PO SCH (10:18)
[2017-09-02] MEDS ORDERED: Morphine 4 MG/ML VIAL SLOW IVP PRN (12:15)
[2017-09-02 20:22] VITALS: BP 134/61
[2017-09-02] MEDS: Aripiprazole 2 MG TAB PO SCH (20:28)
[2017-09-02] MEDS: Latanoprost 0.005% Ophth Soln 2.5 ml Bottle EA EYE SCH (20:31)
[2017-09-02 21:40] VITALS: TEMP 98.7
--- NOTE | 2017-09-02 21:54 | PRG ---
DATE OF SERVICE: 09/02/2017 SERVICE: Pulmonary Medicine. INTERVAL HISTORY: The patient is doing great from a respiratory standpoint. He denies any current f shaunna, chills, nausea or vomiting. He got his azelastine spray but truth be told, he has not used it yet. He does not have any difficulty with breathing, but continues to have a rattle around his ches t. This was worse in the morning and slowly clears as the day goes on. He remains extraordinarily w eak and is refusing to work with Occupational Therapy and Physical Therapy. PHYSICAL EXAMINATION: VITAL SIGNS: Afebrile, pulse 100, blood pressure 112/54, respirations 16, saturation 92% on 2 liters nasal cannula. GENERAL: Patient is awake, alert, in no apparent distress. LUNGS: Decent air entry. There is no prolonged expiratory phase, wheezing, rhonchi or crackles. HEART: Normal rate, regular. ABDOMEN: Soft, nontender, nondistended. Bowel sounds are positive. MUSCULOSKELETAL: No cyanosis or clubbing. There is 1+ pitting in the bilateral lower extremities. NEUROLOGIC: Grossly nonfocal. LABORATORY DATA: WBC 0.2, hemoglobin 8.4, platelets 13,000. Microbiology is completely negative to date except for coag negative Staph, it is growing on the catheter tip that was previously removed on 08/25. BAL demonstrates a paucicellular specimen with predominantly mucoid debride and scattered br onchial epithelial cells and histiocytes, negative for any granulomatous disease or neoplasm. Transb ronchial biopsy demonstrates unremarkable alveolar tissue negative for granulomatous inflammation. I t was negative for fungi and negative for neoplasia. ASSESSMENT: 1. Acute hypoxic respiratory failure. 2. Community-acquired pneumonia, possible. 3. Pulmonary infiltrate. 4. Bacteremia secondary to Enterococcus faecium. 5. Gastroesophageal reflux disease. 6. Immunocompromised state. 7. Rhinitis secondary to allergic and nonallergic causes. 8. Aspiration, suspected. PLAN: Some special stains and studies are currently pending on the BAL sample. That being said, alexander tyler that has come today has been completely unremarkable. So far, this corroborates my theory th at the patient is simply having significant aspiration related disease at spilling down into his lung , particularly with sleep. The patient was extraordinarily weak and refusing to participate with [facility] sical therapy or occupational therapy. My suspicion is that his swallow was getting impaired, partic ularly while he is sleeping. I provided him with the medication to try to dry up some of his nasal s ecretions. I will continue to follow along for 1-2 additional days to make certain he remains stable . He is getting a little bit puffy. As such, I recommended a couple doses of Lasix.
--- NOTE | 2017-09-03 07:27 | DIS ---
DATE OF ADMISSION: 08/23/2017 DATE OF DISCHARGE: 09/02/2017 DISCHARGE DISPOSITION: [facility]. PRIMARY DISCHARGE DIAGNOSES: 1. PICC line related bacteremia. 2. Bacteremia due to Enterococcus. 3. Multifocal pneumonia. 4. Sepsis. 5. Neutropenic fever. 6. Hypokalemia. 7. Sepsis with acute organ dysfunction. 8. Cholelithiasis. 9. Severe thrombocytopenia, required transfusion. 10. Anemia, required transfusion. SECONDARY DISCHARGE DIAGNOSES: 1. Acute myeloid leukemia. 2. Dyslipidemia. 3. Hypothyroidism. 4. Physical deconditioning. PRIMARY PROCEDURE/OPERATION: 1. PICC line removal and subsequently repeat PICC line placement. 2. Bronchoscopy and bronchoalveolar lavage. RADIOLOGICAL INVESTIGATIONS: Chest x-ray, CT angio, repeat chest x-ray. SIGNIFICANT LABORATORY DATA: WBC 0.2, hemoglobin 8.4, platelets 13, creatinine 0.80. Blood culture positive for Enterococcus faecium. Repeat blood culture and bronchoalveolar lavage culture was negat rocael. C. diff negative, influenza negative. Urine culture negative. DISCHARGE MEDICATIONS: The patient is discharged to [facility] and further care will be given at [facility]. HOSPITAL COURSE: A 76-year-old male who was admitted in hospital with sepsis. He was found with aty pical pneumonia. He has severe thrombocytopenia required platelet transfusion during this admission. ID team, pulmonary team was following and oncology team was following. He was treated with daptomy mikal, cefepime, Levaquin and Voriconazole. Subsequently, daptomycin was discontinued and started on Z yvox. Rest of antibiotics was continued. This patient did not have any significant improvement. Br onchoscopy was done by Pulmonary group. He has no long-term good prognosis and the patient and famil y member requested transfer to [facility]. With the help of Oncology, we are transferring this pa tient to [facility] for further higher level of care.
== END 2017-09-02 22:41 | disposition designated cancer center or children's hospital (05) | DRG 264 ==
LOC: ERS 11:27 → ERHOLD 15:27 → 2NO 17:17 → ONC 08-25 11:03
PROVIDERS: ADMIT Internal Medicine; ATTEND Internal Medicine
PROC: 30233R1 Transfusion of Nonautologous Platelets into Peripheral Vein, Percutaneous Approach (ICD-10-PCS; 2017-08-23)
PROC: 30233N1 Transfusion of Nonautologous Red Blood Cells into Peripheral Vein, Percutaneous Approach (ICD-10-PCS; 2017-08-24)
PROC: 02HV33Z Insertion of Infusion Device into Superior Vena Cava, Percutaneous Approach (ICD-10-PCS; 2017-08-27)
PROC: 0B9J8ZX Drainage of Left Lower Lung Lobe, Via Natural or Artificial Opening Endoscopic, Diagnostic (ICD-10-PCS; principal; 2017-08-30)
PROC: 0BDB8ZX Extraction of Left Lower Lobe Bronchus, Via Natural or Artificial Opening Endoscopic, Diagnostic (ICD-10-PCS; 2017-08-30)
DX: T80.219A Unspecified infection due to central venous catheter, initial encounter (principal); A41.81 Sepsis due to Enterococcus; J96.01 Acute respiratory failure with hypoxia; J15.8 Pneumonia due to other specified bacteria; C92.00 Acute myeloblastic leukemia, not having achieved remission; D70.9 Neutropenia, unspecified; R50.81 Fever presenting with conditions classified elsewhere; D69.6 Thrombocytopenia, unspecified; R65.20 Severe sepsis without septic shock; Z85.46 Personal history of malignant neoplasm of prostate; K80.20 Calculus of gallbladder without cholecystitis without obstruction; E78.5 Hyperlipidemia, unspecified; E03.9 Hypothyroidism, unspecified; E87.6 Hypokalemia; K21.9 Gastro-esophageal reflux disease without esophagitis; H40.9 Unspecified glaucoma; F41.9 Anxiety disorder, unspecified; F32.9 Major depressive disorder, single episode, unspecified; Z87.891 Personal history of nicotine dependence; I10 Essential (primary) hypertension; Z96.651 Presence of right artificial knee joint; M19.90 Unspecified osteoarthritis, unspecified site; J30.9 Allergic rhinitis, unspecified; J31.0 Chronic rhinitis
CPT/HCPCS: 36415; 36430; 36569; 71010; 71275; 80048; 80053; 80202; 81003; 81015; 82533; 83605; 83735; 84100; 85025; 85046; 85060; 86850; 86870; 86900; 86901; 86922; 87040; 87070; 87071; 87077; 87086; 87102; 87116; 87149; 87186; 87205; 87206; 87324; 87449; 87497; 87899; 88112; 88305; 88312; 89051; 93005; 93010; 96361; 96365; 96374; 96375; A4216; C1751; G8978-GP-CM; G8979-GP-CI; G8987-GO-CM; G8988-GO-CM; G8989-GO-CM; G8996-GN-CJ; G8997-GN-CJ; J0692; J0878; J1100; J1200; J1642; J1644; J1956; J2001; J2020; J2250; J2270; J2405; J2704; J2920; J3010; J3370; J3465; J3475; J3480; J7050; J7620; P9016; P9035; Q0162